=== PATIENT | male | born 1945 | race Caucasian/White ===

== ENCOUNTER → 2016-09-29 | Outpatient (CLI) | payer MEDICARE, OTHER ==
[~2016-09-29] MED LIST: ASPI-231 PO; DULO1CAP3 PO; HYDR-4069 PO; IBUP800T24 PO; MIRT15TA3 PO; MIRT1TAB PO; PHEN100C70 PO; ROSU10TA16 PO
[2016-09-29 08:45] LABS: Basophils # (auto) 0 uL; Basophils % (auto) 0.2 % (0.0-2.0); CONDITION Y; Eosinophils # (auto) 0.1 uL; Eosinophils % (auto) 0.5 % (0.0-7.0); Hematocrit 38.8 % (41.0-53.0); Hemoglobin 13.2 g/dL (13.5-17.5); Lymphocytes # (auto) 2.3 uL; Lymphocytes % (auto) 14.9 % (10.0-50.0); Mean Corpuscular Hemoglobin 33.6 pg (28.0-32.0); Mean Corpuscular Hgb Conc. 34.2 g/dL (32.0-36.0); Mean Corpuscular Volume 98.2 fL (80.0-100.0); Mean Platelet Volume 8.8 fL (7.4-10.4); Monocytes % (auto) 6.5 % (0.0-12.0); Neutrophils # (auto) 12.2 uL; Neutrophils % (auto) 77.9 % (37.0-80.0); Platelet Count (auto) 386 10^3/uL (140-450); Red Cell Distribution Width 13.3 % (11.6-16.0); White Blood Cell 15.6 10^3/uL (4.4-10.8)
[2016-09-29 08:53] LABS: Urine Bilirubin Negative (Negative); Urine Blood Negative /uL (Negative); Urine Color Yellow (Yellow); Urine Glucose Normal (Normal); Urine Ketone Negative (Negative); Urine Nitrite Negative (Negative); Urine RBC 2 /hpf (0 - 3); Urine Urobilinogen Normal (Negative)
[2016-09-29 09:12] LABS: Albumin 2.9 g/dL (3.4-5.0); BUN/Creatinine Ratio 12.5; Bilirubin, Total 0.4 mg/dL (0.2-1.0); Calcium 8.6 mg/dL (8.5-10.1); Total Protein 6.3 g/dL (6.4-8.2)
[2016-09-29 09:19] LABS: Potassium 2.4 mmol/L (3.5-5.1)
== END | disposition home or self-care (01) ==
LOC: LAB 07:48
PROVIDERS: ATTEND Internal Medicine
DX: Z00.00 Encounter for general adult medical examination without abnormal findings (principal); I10 Essential (primary) hypertension; E78.2 Mixed hyperlipidemia; E55.9 Vitamin D deficiency, unspecified
CPT/HCPCS: 36415; 80053; 80061; 81001; 82150; 82306; 84153; 84154; 84443; 85025

== ENCOUNTER 2016-10-04 10:45 | Inpatient (IN) | payer MEDICARE, OTHER ==
[~2016-10-04] VITALS: Ht 182.9 cm; Wt 55.2 kg
[2016-10-04 11:49] LABS: INR 0.98 (0.9-1.15); Partial Thromboplastin Time 32.5 sec (22.64-33.71); Prothrombin Time 10.7 sec (9.37-12.3)
[2016-10-04 11:50] LABS: Basophils # (auto) 0.1 uL; Basophils % (auto) 0.5 % (0.0-2.0); CONDITION Y; Eosinophils # (auto) 0.2 uL; Eosinophils % (auto) 0.9 % (0.0-7.0); Hematocrit 36.7 % (41.0-53.0); Hemoglobin 12.5 g/dL (13.5-17.5); Lymphocytes # (auto) 2.2 uL; Lymphocytes % (auto) 11.7 % (10.0-50.0); Mean Corpuscular Hemoglobin 33.3 pg (28.0-32.0); Mean Corpuscular Volume 97.8 fL (80.0-100.0); Mean Platelet Volume 9.4 fL (7.4-10.4); Monocytes # (auto) 1.4 uL; Monocytes % (auto) 7.6 % (0.0-12.0); Neutrophils # (auto) 14.5 uL; Neutrophils % (auto) 79.3 % (37.0-80.0); Platelet Count (auto) 367 10^3/uL (140-450); White Blood Cell 18.3 10^3/uL (4.4-10.8)
[2016-10-04 11:58] LABS: Albumin 2.5 g/dL (3.4-5.0); BUN/Creatinine Ratio 13.1; Bilirubin, Total 0.5 mg/dL (0.2-1.0); Calcium 8.4 mg/dL (8.5-10.1)
[2016-10-04 12:01] LABS: Potassium 2.3 mmol/L (3.5-5.1)
[2016-10-04] MEDS ORDERED: POTASSIUM CHL 20 Meq TABLET PO ONE ×4 (14:30→15:30)
[2016-10-04] MEDS ORDERED: KETOROLAC TROMETH 30 MG/ML 1ML VIAL IV ONE (15:00)
[2016-10-04] MEDS ORDERED: ONDANSETRON HCL 4 MG/2 ML VIAL IV PRN (15:15)
[2016-10-04] MEDS ORDERED: cefTRIAXone 1GM/50ML D5W 50 ML IV ONE (15:15)
[2016-10-04] MEDS ORDERED: ACETAMINOPHEN 500 MG TAB PO PRN (15:15)
[2016-10-04] MEDS ORDERED: SOD CHL 0.9%/ KCL 40MEQ 1,000 ML IV SCH (15:15)
[2016-10-04] MEDS ORDERED: MORPHINE SULF INJ 2 MG/ML SYRINGE 1ML IV PRN ×2 (15:15)
[2016-10-04] MEDS ORDERED: NITROGLYCERIN 0.4 MG SL TAB SL PRN (15:15)
[2016-10-04] MEDS ORDERED: TEMAZEPAM 15 MG CAP PO PRN (15:15)
[2016-10-04] MEDS ORDERED: LORazepam 0.5 MG TAB PO PRN (15:15)
[2016-10-04] MEDS ORDERED: metroNIDAZOLE 500MG/100ML 100 ML IV ONE (15:15)
[2016-10-04] MEDS ORDERED: HYDROcodone-ACET 5/325MG TAB PO PRN (15:15)
[2016-10-04] MEDS: SODIUM CHLORIDE 0.9% 1,000 ML IV SCH (15:30)
[2016-10-04] MEDS: POTASSIUM CHL 20MEQ/100ML 100 ML IV SCH ×5 (15:30→21:09)
[2016-10-04] MEDS ORDERED: chlordiazePOXIDE HCL 25 MG CAP PO PRN (20:00)
[2016-10-04] MEDS ORDERED: THIAMINE HCL 100 MG/ML 2ML VIAL IV ONE (20:00)
[2016-10-04] MEDS ORDERED: metroNIDAZOLE 500MG/100ML 100 ML IV SCH (22:00)
[2016-10-04] MEDS: PHENYTOIN SODIUM 100 MG CAP PO SCH (22:16)
[2016-10-04] MEDS: ATORVASTATIN 20 MG TAB PO SCH (22:16)
[2016-10-04] MEDS: metroNIDAZOLE 500 MG TAB PO SCH (22:16)
[2016-10-04] MEDS: MIRTAZAPINE 30 MG TAB PO SCH (22:16)
[2016-10-04 22:45] VITALS: BP 147/92
[2016-10-05] MEDS: SODIUM CHLORIDE 0.9% 1,000 ML IV SCH (04:28)
[2016-10-05] MEDS: metroNIDAZOLE 500 MG TAB PO SCH ×4 (05:35→21:30)
[2016-10-05 05:49] VITALS: BP 133/73
[2016-10-05 06:28] LABS: Basophils # (auto) 0 uL; Basophils % (auto) 0.2 % (0.0-2.0); CONDITION Y; Eosinophils # (auto) 0.2 uL; Hematocrit 34.4 % (41.0-53.0); Hemoglobin 11.9 g/dL (13.5-17.5); Lymphocytes # (auto) 1.8 uL; Lymphocytes % (auto) 11.1 % (10.0-50.0); Mean Corpuscular Hemoglobin 33.7 pg (28.0-32.0); Mean Corpuscular Hgb Conc. 34.6 g/dL (32.0-36.0); Mean Corpuscular Volume 97.3 fL (80.0-100.0); Mean Platelet Volume 9.7 fL (7.4-10.4); Monocytes # (auto) 1.2 uL; Monocytes % (auto) 7.5 % (0.0-12.0); Neutrophils # (auto) 13.2 uL; Neutrophils % (auto) 80.2 % (37.0-80.0); Platelet Count (auto) 360 10^3/uL (140-450); Red Cell Distribution Width 13.1 % (11.6-16.0); White Blood Cell 16.5 10^3/uL (4.4-10.8)
[2016-10-05 06:38] LABS: Potassium 3.1 mmol/L (3.5-5.1)
[2016-10-05 06:43] LABS: Calcium 7.6 mg/dL (8.5-10.1)
[2016-10-05 08:02] VITALS: BP 133/73
[2016-10-05 08:07] LABS: PSA Free 0.92 ng/mL; Prostate Specific Antigen 5.4 ng/mL (0.0-4.0)
[2016-10-05 09:00] VITALS: BP 130/71
[2016-10-05] MEDS: PHENYTOIN SODIUM 100 MG CAP PO SCH ×2 (09:06→21:30)
[2016-10-05] MEDS: THIAMINE HCL 100 MG/ML 2ML VIAL IV SCH (09:08)
[2016-10-05] MEDS: ASPirin-EC 81 mg tab PO SCH (09:08)
[2016-10-05] MEDS ORDERED: FOLIC ACID 1 MG TAB PO ONE (10:30)
[2016-10-05] MEDS ORDERED: MULTIPLE VITAMINS W/ MINERALS TAB PO ONE (10:30)
[2016-10-05] MEDS ORDERED: POTASSIUM CHL 10% (20 MEQ/15ML) ORAL SOLN PO ONE (10:30)
[2016-10-05 10:33] LABS: Urine Bilirubin Negative (Negative); Urine Blood Negative /uL (Negative); Urine Color Yellow (Yellow); Urine Glucose Normal (Normal); Urine Ketone TRACE (Negative); Urine Nitrite Negative (Negative); Urine RBC 1 /hpf (0 - 3); Urine Squamous Epithelial Cell FEW /hpf (<5); Urine Urobilinogen Normal (Negative); Urine pH 6.5 (5.0-8.0)
[2016-10-05] MEDS: MAGNESIUM SULFATE 1GM/100ML 100 ML IV SCH ×2 (11:13→13:55)
[2016-10-05 13:00] VITALS: BP 129/77
[2016-10-05] MEDS: SOD CHL 0.45% WITH 20MEQ KCL 1,000 ML IV SCH ×2 (14:17→23:44)
[2016-10-05] MEDS ORDERED: SODIUM CHLORIDE 0.9% 1,000 ML IV SCH (15:30)
[2016-10-05 17:45] VITALS: BP 150/86
[2016-10-05] MEDS: ATORVASTATIN 20 MG TAB PO SCH (21:30)
[2016-10-05] MEDS: MIRTAZAPINE 30 MG TAB PO SCH (21:31)
[2016-10-06 04:48] VITALS: BP 139/75
[2016-10-06] MEDS: metroNIDAZOLE 500 MG TAB PO SCH ×2 (06:04→15:54)
[2016-10-06 06:24] LABS: Basophils # (auto) 0 uL; Basophils % (auto) 0.3 % (0.0-2.0); CONDITION Y; Eosinophils # (auto) 0.5 uL; Eosinophils % (auto) 3.8 % (0.0-7.0); Hematocrit 35.3 % (41.0-53.0); Hemoglobin 11.9 g/dL (13.5-17.5); Lymphocytes # (auto) 2.3 uL; Mean Corpuscular Hemoglobin 33.2 pg (28.0-32.0); Mean Corpuscular Hgb Conc. 33.7 g/dL (32.0-36.0); Mean Corpuscular Volume 98.6 fL (80.0-100.0); Mean Platelet Volume 9.8 fL (7.4-10.4); Monocytes # (auto) 1.2 uL; Monocytes % (auto) 9.1 % (0.0-12.0); Neutrophils # (auto) 8.8 uL; Neutrophils % (auto) 68.8 % (37.0-80.0); Platelet Count (auto) 367 10^3/uL (140-450); Red Cell Distribution Width 12.8 % (11.6-16.0); White Blood Cell 12.8 10^3/uL (4.4-10.8)
[2016-10-06 06:57] LABS: BUN/Creatinine Ratio 11.3; Calcium 7.6 mg/dL (8.5-10.1); Magnesium 1.9 mg/dL (1.6-2.6); Potassium 3.8 mmol/L (3.5-5.1)
[2016-10-06 08:00] VITALS: BP 153/83
[2016-10-06 09:00] VITALS: BP 153/83
[2016-10-06] MEDS ORDERED: MULTIPLE VITAMINS W/ MINERALS TAB PO SCH (10:00)
[2016-10-06] MEDS ORDERED: FLORASTOR (S. BOULARDII) 250 MG CAP PO SCH (10:00)
[2016-10-06] MEDS ORDERED: FOLIC ACID 1 MG TAB PO SCH (10:00)
[2016-10-06] MEDS: SOD CHL 0.45% WITH 20MEQ KCL 1,000 ML IV SCH (10:49)
[2016-10-06] MEDS: PHENYTOIN SODIUM 100 MG CAP PO SCH (10:49)
[2016-10-06] MEDS: THIAMINE HCL 100 MG/ML 2ML VIAL IV SCH (10:49)
[2016-10-06] MEDS: ASPirin-EC 81 mg tab PO SCH (10:50)
[2016-10-06 13:00] VITALS: BP 129/57
[2016-10-06 13:13] VITALS: BP 153/94
== END 2016-10-06 16:29 | disposition home or self-care (01) | DRG 872 ==
LOC: ER 10:50 → TELE 10:51 → TELE-WESTW 22:34 → WEST WING 10-05 20:29
PROVIDERS: ADMIT Nurse Practitioner Family; ATTEND Internal Medicine
DX: A41.9 Sepsis, unspecified organism (principal); A04.7 Enterocolitis due to Clostridium difficile; E44.0 Moderate protein-calorie malnutrition; Z68.1 Body mass index [BMI] 19.9 or less, adult; E87.6 Hypokalemia; J44.9 Chronic obstructive pulmonary disease, unspecified; N20.0 Calculus of kidney; N28.1 Cyst of kidney, acquired; E78.5 Hyperlipidemia, unspecified; N40.0 Benign prostatic hyperplasia without lower urinary tract symptoms; E11.9 Type 2 diabetes mellitus without complications; Z86.73 Personal history of transient ischemic attack (TIA), and cerebral infarction without residual deficits; E83.42 Hypomagnesemia; D64.9 Anemia, unspecified; E86.0 Dehydration; F10.10 Alcohol abuse, uncomplicated; G40.909 Epilepsy, unspecified, not intractable, without status epilepticus; I10 Essential (primary) hypertension; K57.30 Diverticulosis of large intestine without perforation or abscess without bleeding; Z79.899 Other long term (current) drug therapy; Z83.3 Family history of diabetes mellitus; F32.9 Major depressive disorder, single episode, unspecified; M19.90 Unspecified osteoarthritis, unspecified site; Z79.82 Long term (current) use of aspirin
CPT/HCPCS: 36415; 71010; 74176; 80048; 80053; 80185; 81001; 82962; 83605; 83735; 84100; 84132; 84154; 84443; 85025; 85610; 85730; 87040; 87493; 93005; 96365; 96368; 96375; J0696; J1885; J3480; J3490

== ENCOUNTER → 2016-11-04 | Outpatient (CLI) | payer MEDICARE, OTHER ==
[2016-11-04 08:29] LABS: Albumin 2.5 g/dL (3.4-5.0); BUN/Creatinine Ratio 17.1; Bilirubin, Total 0.3 mg/dL (0.2-1.0); Calcium 8.2 mg/dL (8.5-10.1); Total Protein 5.9 g/dL (6.4-8.2)
[2016-11-04 09:06] LABS: Potassium 2.9 mmol/L (3.5-5.1)
[2016-11-05 07:11] LABS: Prostate Specific Antigen 4.5 ng/mL (0.0-4.0)
[2016-11-05 08:07] LABS: PSA Free 0.72 ng/mL
== END | disposition home or self-care (01) ==
LOC: LAB 07:56
PROVIDERS: ATTEND Internal Medicine
DX: I10 Essential (primary) hypertension (principal); R97.20 Elevated prostate specific antigen [PSA]; E11.9 Type 2 diabetes mellitus without complications
CPT/HCPCS: 36415; 80053; 84153; 84154

== ENCOUNTER → 2016-12-07 | Outpatient (CLI) | payer MEDICARE, OTHER | END | disposition home or self-care (01) | LOC: LAB 11:27 | PROVIDERS: ATTEND Internal Medicine | DX: K59.00 Constipation, unspecified (principal); J44.9 Chronic obstructive pulmonary disease, unspecified; Z72.89 Other problems related to lifestyle | CPT/HCPCS: 36415; 84132; 87493 ==

== ENCOUNTER → 2016-12-29 | Outpatient (CLI) | payer MEDICARE, OTHER | END | disposition home or self-care (01) | LOC: LAB 13:02 | PROVIDERS: ATTEND Physician Assistant | DX: A04.72 Enterocolitis due to Clostridium difficile, not specified as recurrent (principal) | CPT/HCPCS: 87493 ==

== ENCOUNTER → 2017-10-31 | Outpatient (CLI) | payer MEDICARE ==
[2017-10-31 08:57] LABS: Basophils # (auto) 0 uL; Basophils % (auto) 0.3 % (0.0-2.0); Eosinophils # (auto) 0.2 uL; Eosinophils % (auto) 3.2 % (0.0-7.0); Hematocrit 37.2 % (41.0-53.0); Hemoglobin 12.4 g/dL (13.5-17.5); Lymphocytes # (auto) 1.9 uL; Lymphocytes % (auto) 27.6 % (10.0-50.0); Mean Corpuscular Hemoglobin 32.6 pg (28.0-32.0); Mean Corpuscular Hgb Conc. 33.2 g/dL (32.0-36.0); Mean Corpuscular Volume 98.1 fL (80.0-100.0); Monocytes # (auto) 0.7 uL; Monocytes % (auto) 10.8 % (0.0-12.0); Neutrophils # (auto) 3.9 uL; Neutrophils % (auto) 58.1 % (37.0-80.0); Nucleated Red Blood Cells % 0.1 %; Platelet Count (auto) 185 10^3/uL (140-450); Red Blood Cells 3.79 10^6/uL (4.5-5.90); Red Cell Distribution Width 12.3 % (11.8-14.3); White Blood Cell 6.8 10^3/uL (4.4-10.8)
[2017-10-31 09:24] LABS: Albumin 3.5 g/dL (3.4-5.0); Bilirubin, Total 0.2 mg/dL (0.2-1.0); Calcium 8.9 mg/dL (8.5-10.1); Potassium 4.7 mmol/L (3.5-5.1); Total Protein 6.5 g/dL (6.4-8.2)
== END | disposition home or self-care (01) ==
LOC: LAB 08:37
PROVIDERS: ATTEND Physician Assistant
DX: J44.9 Chronic obstructive pulmonary disease, unspecified (principal); E87.6 Hypokalemia; E55.9 Vitamin D deficiency, unspecified; E78.4 Other hyperlipidemia; R97.20 Elevated prostate specific antigen [PSA]; I10 Essential (primary) hypertension; E11.9 Type 2 diabetes mellitus without complications; Z79.82 Long term (current) use of aspirin
CPT/HCPCS: 36415; 80053; 80061; 82306; 84153; 84154; 85025

== ENCOUNTER → 2018-12-12 | Outpatient (CLI) | payer OTHER ==
[~2018-12-12] MED LIST changes: -DULO1CAP3 PO; +DULO1CAP6 PO; -MIRT15TA3 PO; +MIRT1TAB38 PO
[2018-12-12 11:28] LABS: Albumin 3.7 g/dL (3.4-5.0); BUN/Creatinine Ratio 23.3; Bilirubin, Total 0.4 mg/dL (0.2-1.0); Calcium 9.5 mg/dL (8.5-10.1); Total Protein 7.1 g/dL (6.4-8.2)
[2018-12-13 01:12] LABS: Basophils # (auto) 0.1 uL; Basophils % (auto) 1.8 % (0.0-2.0); Eosinophils # (auto) 0.2 uL; Eosinophils % (auto) 2.7 % (0.0-7.0); Hemoglobin 13.8 g/dL (13.5-17.5); Lymphocytes # (auto) 2.2 uL; Lymphocytes % (auto) 32.1 % (10.0-50.0); Mean Corpuscular Hemoglobin 31.7 pg (28.0-32.0); Mean Corpuscular Hgb Conc. 32.9 g/dL (32.0-36.0); Mean Corpuscular Volume 96.3 fL (80.0-100.0); Monocytes # (auto) 0.8 uL; Monocytes % (auto) 11.2 % (0.0-12.0); Neutrophils # (auto) 3.6 uL; Neutrophils % (auto) 52.2 % (37.0-80.0); Nucleated Red Blood Cells % 0.1 %; Platelet Count (auto) 207 10^3/uL (140-450); Red Blood Cells 4.37 10^6/uL (4.5-5.90); Red Cell Distribution Width 14.2 % (11.8-14.3); White Blood Cell 6.9 10^3/uL (4.4-10.8)
== END | disposition home or self-care (01) ==
LOC: LAB 10:15
PROVIDERS: ATTEND Physician Assistant
DX: J44.9 Chronic obstructive pulmonary disease, unspecified (principal); E78.49 Other hyperlipidemia; E55.9 Vitamin D deficiency, unspecified; K85.20 Alcohol induced acute pancreatitis without necrosis or infection; R97.20 Elevated prostate specific antigen [PSA]
CPT/HCPCS: 36415; 80053; 80061; 82306; 84153; 84154; 85025

== ENCOUNTER → 2019-10-15 | Outpatient (CLI) | payer MEDICARE, OTHER ==
[~2019-10-15] MED LIST changes: +ALBUTEROL SULF 2.5 MG/0.5ML(0.5%) NEB SOLN ONE
== END | disposition home or self-care (01) ==
LOC: RT 08:26
PROVIDERS: ATTEND Internal Medicine Pulmonary Disease
DX: J98.8 Other specified respiratory disorders (principal); J44.9 Chronic obstructive pulmonary disease, unspecified; F32.9 Major depressive disorder, single episode, unspecified; Z98.890 Other specified postprocedural states; Z79.899 Other long term (current) drug therapy
CPT/HCPCS: 36600; 82805; 94060; 94618

== ENCOUNTER → 2020-01-16 | Outpatient (CLI) | payer OTHER ==
[~2020-01-16] MED LIST changes: -ALBUTEROL SULF 2.5 MG/0.5ML(0.5%) NEB SOLN ONE
[2020-01-16 07:40] LABS: Basophils # (auto) 0 10 ^3/uL (0-0.2); Basophils % (auto) 0.5 % (0.0-2.0); Eosinophils # (auto) 0.3 10 ^3/uL (0-0.8); Hematocrit 40.2 % (41.0-53.0); Hemoglobin 13.4 g/dL (13.5-17.5); Lymphocytes # (auto) 1.9 10 ^3/uL (0.4-5.4); Mean Corpuscular Hemoglobin 30.7 pg (28.0-32.0); Mean Corpuscular Hgb Conc. 33.2 g/dL (32.0-36.0); Mean Corpuscular Volume 92.4 fL (80.0-100.0); Monocytes # (auto) 0.7 10 ^3/uL (0-1.3); Monocytes % (auto) 8.4 % (0.0-12.0); Neutrophils % (auto) 63.1 % (37.0-80.0); Nucleated Red Blood Cells % 0.1 %; Platelet Count (auto) 217 10^3/uL (140-450); Red Blood Cells 4.35 10^6/uL (4.5-5.90); Red Cell Distribution Width 12.9 % (11.8-14.3); White Blood Cell 7.8 10^3/uL (4.4-10.8)
[2020-01-16 08:50] LABS: Albumin 3.8 g/dL (3.4-5.0); Potassium 4.5 mmol/L (3.5-5.1)
[2020-01-16 08:57] LABS: BUN/Creatinine Ratio 25.7; Bilirubin, Total 0.3 mg/dL (0.2-1.0); Calcium 9.6 mg/dL (8.5-10.1); Total Protein 7.1 g/dL (6.4-8.2)
== END | disposition home or self-care (01) ==
LOC: LAB 07:18
PROVIDERS: ATTEND Physician Assistant
DX: E87.6 Hypokalemia (principal); E78.49 Other hyperlipidemia; E55.9 Vitamin D deficiency, unspecified; F32.4 Major depressive disorder, single episode, in partial remission; R97.20 Elevated prostate specific antigen [PSA]
CPT/HCPCS: 36415; 80053; 80061; 82306; 84153; 84154; 85025

== ENCOUNTER → 2020-10-22 | Outpatient (CLI) | payer OTHER ==
[~2020-10-22] MED LIST changes: -IBUP800T24 PO; +IBUP800T26 PO; +PHEN100C PO; -PHEN100C70 PO
[2020-10-22 10:50] LABS: Basophils # (auto) 0 10 ^3/uL (0-0.2); Basophils % (auto) 0.4 % (0.0-2.0); Eosinophils # (auto) 0.3 10 ^3/uL (0-0.8); Eosinophils % (auto) 2.6 % (0.0-7.0); Hematocrit 39.5 % (41.0-53.0); Hemoglobin 13.7 g/dL (13.5-17.5); Lymphocytes # (auto) 2.4 10 ^3/uL (0.4-5.4); Lymphocytes % (auto) 23.9 % (10.0-50.0); Mean Corpuscular Hemoglobin 31.7 pg (28.0-32.0); Mean Corpuscular Hgb Conc. 34.6 g/dL (32.0-36.0); Mean Corpuscular Volume 91.5 fL (80.0-100.0); Monocytes # (auto) 0.8 10 ^3/uL (0-1.3); Monocytes % (auto) 7.7 % (0.0-12.0); Neutrophils # (auto) 6.5 10 ^3/uL (1.6-8.6); Neutrophils % (auto) 65.4 % (37.0-80.0); Red Blood Cells 4.32 10^6/uL (4.5-5.90); Red Cell Distribution Width 13.1 % (11.8-14.3)
[2020-10-22 11:14] LABS: Potassium 4.7 mmol/L (3.5-5.1)
[2020-10-22 11:18] LABS: Bilirubin, Total 0.4 mg/dL (0.2-1.0)
== END | disposition home or self-care (01) ==
LOC: LAB 10:13
PROVIDERS: ATTEND Nurse Practitioner Family
DX: J44.9 Chronic obstructive pulmonary disease, unspecified (principal); R92.2 Inconclusive mammogram; E87.6 Hypokalemia; Z86.73 Personal history of transient ischemic attack (TIA), and cerebral infarction without residual deficits
CPT/HCPCS: 36415; 80053; 80061; 85025

== ENCOUNTER 2020-11-23 15:37 | Inpatient (IN) | payer OTHER ==
[~2020-11-23] VITALS: Ht 182.9 cm; Wt 60.9 kg
[~2020-11-23 15:37] MED LIST changes: -ASPI-231 PO; +ASPI1TAB20 PO
[2020-11-23 16:22] LABS: Basophils # (auto) 0 10 ^3/uL (0-0.2); Basophils % (auto) 0.2 % (0.0-2.0); Eosinophils # (auto) 0 10 ^3/uL (0-0.8); Eosinophils % (auto) 0.1 % (0.0-7.0); Hematocrit 35.9 % (41.0-53.0); Hemoglobin 11.9 g/dL (13.5-17.5); Lymphocytes # (auto) 1.8 10 ^3/uL (0.4-5.4); Lymphocytes % (auto) 10.3 % (10.0-50.0); Mean Corpuscular Hgb Conc. 33.1 g/dL (32.0-36.0); Mean Corpuscular Volume 90.7 fL (80.0-100.0); Monocytes # (auto) 1.5 10 ^3/uL (0-1.3); Monocytes % (auto) 8.8 % (0.0-12.0); Neutrophils # (auto) 13.9 10 ^3/uL (1.6-8.6); Neutrophils % (auto) 80.6 % (37.0-80.0); Red Blood Cells 3.96 10^6/uL (4.5-5.90); Red Cell Distribution Width 12.9 % (11.8-14.3); White Blood Cell 17.2 10^3/uL (4.4-10.8)
[2020-11-23 16:36] LABS: Albumin 3.1 g/dL (3.4-5.0); Anion Gap 8 (5-15); Blood Urea Nitrogen 23 mg/dL (7-18); Carbon Dioxide 25 mmol/L (21-32); Chloride 108 mmol/L (98-107); Glucose 123 mg/dL (74-106); Lipase 55 U/L (73-393); Sodium 141 mmol/L (136-145)
[2020-11-23 16:42] LABS: Alanine Aminotransferase 39 U/L (16-61); Alkaline Phosphatase 115 U/L (45-117); Aspartate Aminotransferase 22 U/L (15-37); BUN/Creatinine Ratio 27.1; Bilirubin, Total 0.5 mg/dL (0.2-1.0); GFR African American 113 mL/min; GFR Non-African American 94 mL/min; Total Protein 7.2 g/dL (6.4-8.2)
[2020-11-23 17:03] LABS: Potassium 2.6 mmol/L (3.5-5.1)
[2020-11-23] MEDS ORDERED: POTASSIUM EFFERVESENT TAB 25 MEQ PO ONE ×2 (17:15)
[2020-11-23] MEDS ORDERED: cefTRIAXone 1GM/50ML D5W 50 ML IV ONE (18:15)
[2020-11-23] MEDS ORDERED: metroNIDAZOLE 500MG/100ML 100 ML IV ONE (18:15)
[2020-11-23] MEDS ORDERED: MAGNESIUM SULFATE 1GM/100ML 100 ML IV ONE (19:30)
[2020-11-23] MEDS ORDERED: NITROGLYCERIN 0.4 MG SL TAB SL PRN (19:30)
[2020-11-23] MEDS ORDERED: MORPHINE SULFATE INJECTION 2 MG/ML SYRG IV PRN (19:30)
[2020-11-23] MEDS ORDERED: DEXTROSE (50%) 50ML SYRG IV PRN (19:45)
[2020-11-23] MEDS: SOD CHL 0.9%/ KCL 40MEQ 1,000 ML IV SCH (21:40)
[2020-11-23] MEDS: VANCOMYCIN HCL 125MG/5ML ORAL SOL PO SCH (22:39)
[2020-11-23] MEDS: InsuLIN REG 1unit/0.01ml Soln (100units/ml) SC SCH (22:48)
[2020-11-23] MEDS: metroNIDAZOLE 500MG/100ML 100 ML IV SCH (22:50)
[2020-11-23] MEDS: ACCU-CHEK COMFORT CURVE STRIP VI SCH (22:51)
[2020-11-24 04:43] LABS: Basophils # (auto) 0 10 ^3/uL (0-0.2); Basophils % (auto) 0.2 % (0.0-2.0); Eosinophils # (auto) 0.1 10 ^3/uL (0-0.8); Eosinophils % (auto) 0.5 % (0.0-7.0); Hematocrit 32.9 % (41.0-53.0); Hemoglobin 11.4 g/dL (13.5-17.5); Lymphocytes # (auto) 1.5 10 ^3/uL (0.4-5.4); Lymphocytes % (auto) 11.5 % (10.0-50.0); Mean Corpuscular Hemoglobin 30.9 pg (28.0-32.0); Mean Corpuscular Hgb Conc. 34.5 g/dL (32.0-36.0); Mean Corpuscular Volume 89.5 fL (80.0-100.0); Monocytes # (auto) 1.2 10 ^3/uL (0-1.3); Monocytes % (auto) 9.7 % (0.0-12.0); Neutrophils # (auto) 10.1 10 ^3/uL (1.6-8.6); Neutrophils % (auto) 78.1 % (37.0-80.0); Red Blood Cells 3.68 10^6/uL (4.5-5.90); Red Cell Distribution Width 12.8 % (11.8-14.3); White Blood Cell 12.9 10^3/uL (4.4-10.8)
[2020-11-24 04:45] LABS: Urine Bacteria FEW /hpf (None Seen); Urine Blood Negative /uL (Negative); Urine Hyaline Cast FEW /lpf (0 - 2); Urine Mucus FEW (None Seen); Urine Specific Gravity 1.031 (1.001-1.035); Urine WBC 2 /hpf (0 - 3)
[2020-11-24 05:00] LABS: Amphetamine Screen, Urine NEGATIVE (NEGATIVE); Cannabinoid Screen, Urine NEGATIVE (NEGATIVE); Cocaine Screen, Urine NEGATIVE (NEGATIVE)
[2020-11-24 05:03] LABS: Barbiturate Scree,Urine NEGATIVE (NEGATIVE); Benzodiazephine Screen, Urine NEGATIVE (NEGATIVE); Opiate Scree,Urine NEGATIVE (NEGATIVE); Phencyclidine Screen, Urine NEGATIVE (NEGATIVE)
[2020-11-24 05:03] LABS: Calcium 8.4 mg/dL (8.5-10.1)
[2020-11-24 05:09] LABS: Albumin 2.7 g/dL (3.4-5.0); Bilirubin, Total 0.4 mg/dL (0.2-1.0); Magnesium 2.3 mg/dL (1.6-2.6); Total Protein 6.3 g/dL (6.4-8.2)
[2020-11-24 05:22] LABS: Potassium 2.9 mmol/L (3.5-5.1)
[2020-11-24] MEDS ORDERED: POTASSIUM CHL 20 Meq TABLET PO ONE (05:45)
[2020-11-24] MEDS: ACCU-CHEK COMFORT CURVE STRIP VI SCH ×2 (05:51→11:10)
[2020-11-24] MEDS: VANCOMYCIN HCL 125MG/5ML ORAL SOL PO SCH ×4 (06:03→22:00)
[2020-11-24] MEDS: SOD CHL 0.9%/ KCL 40MEQ 1,000 ML IV SCH ×2 (07:37→15:30)
[2020-11-24] MEDS: InsuLIN REG 1unit/0.01ml Soln (100units/ml) SC SCH ×2 (07:37→11:09)
[2020-11-24] MEDS: metroNIDAZOLE 500MG/100ML 100 ML IV SCH ×3 (07:37→22:49)
[2020-11-24] MEDS: ATORVASTATIN 20 MG TAB PO SCH (09:27)
[2020-11-24] MEDS: cefTRIAXone 1GM/50ML D5W 50 ML IV SCH (09:28)
[2020-11-24] MEDS: PANTOPRAZOLE 40 MG TAB PO SCH (09:28)
[2020-11-24] MEDS ORDERED: POTASSIUM CHLORIDE 40 MEQ, LIDOCAINE 1% (LOCAL ANESTH.) 4 ML in SODIUM CHL 0.9% 250 ML IV ONE (12:00)
[2020-11-24] MEDS ORDERED: PHENYTOIN SODIUM 100 MG CAP PO SCH (22:00)
[2020-11-24] MEDS: PHENYTOIN SODIUM 50 MG/ML 2ML VIAL IV SCH (22:49)
[2020-11-25] MEDS: SOD CHL 0.9%/ KCL 40MEQ 1,000 ML IV SCH (02:51)
[2020-11-25 04:53] VITALS: BP 146/79
[2020-11-25 04:55] LABS: Basophils # (auto) 0 10 ^3/uL (0-0.2); Basophils % (auto) 0.5 % (0.0-2.0); Eosinophils # (auto) 0.2 10 ^3/uL (0-0.8); Eosinophils % (auto) 2.7 % (0.0-7.0); Hematocrit 31.8 % (41.0-53.0); Hemoglobin 10.7 g/dL (13.5-17.5); Lymphocytes # (auto) 1.2 10 ^3/uL (0.4-5.4); Lymphocytes % (auto) 13.3 % (10.0-50.0); Mean Corpuscular Hgb Conc. 33.6 g/dL (32.0-36.0); Mean Corpuscular Volume 92.1 fL (80.0-100.0); Monocytes # (auto) 0.9 10 ^3/uL (0-1.3); Monocytes % (auto) 9.7 % (0.0-12.0); Neutrophils # (auto) 6.6 10 ^3/uL (1.6-8.6); Neutrophils % (auto) 73.8 % (37.0-80.0); Nucleated Red Blood Cells % 0.1 %; Red Blood Cells 3.45 10^6/uL (4.5-5.90); Red Cell Distribution Width 12.8 % (11.8-14.3)
[2020-11-25 05:12] LABS: BUN/Creatinine Ratio 24.1; Calcium 8.1 mg/dL (8.5-10.1); Potassium 3.8 mmol/L (3.5-5.1)
[2020-11-25] MEDS: VANCOMYCIN HCL 125MG/5ML ORAL SOL PO SCH ×4 (06:23→21:26)
[2020-11-25] MEDS: metroNIDAZOLE 500MG/100ML 100 ML IV SCH ×3 (06:23→21:26)
[2020-11-25 08:00] VITALS: BP 151/77
[2020-11-25 09:00] VITALS: BP 151/77
[2020-11-25] MEDS: cefTRIAXone 1GM/50ML D5W 50 ML IV SCH (10:16)
[2020-11-25] MEDS: DULoxetine HCL 30 MG CAP PO SCH (10:17)
[2020-11-25] MEDS: ATORVASTATIN 20 MG TAB PO SCH (10:17)
[2020-11-25] MEDS: PHENYTOIN SODIUM 50 MG/ML 2ML VIAL IV SCH ×2 (10:17→21:21)
[2020-11-25] MEDS: PANTOPRAZOLE 40 MG TAB PO SCH (10:17)
[2020-11-25] MEDS ORDERED: LORazepam 0.5 MG TAB PO PRN (10:45)
[2020-11-25] MEDS ORDERED: FOLIC ACID 1 MG TAB PO ONE (10:45)
[2020-11-25] MEDS ORDERED: THIAMINE HCL 100 MG TAB PO ONE (10:45)
[2020-11-25 13:00] VITALS: BP 139/83
[2020-11-25 17:00] VITALS: BP 128/68
[2020-11-25] MEDS: MIRTAZAPINE 30 MG TAB PO SCH (21:25)
[2020-11-25 22:00] VITALS: BP 142/76
[2020-11-26 05:00] VITALS: BP 125/65
[2020-11-26] MEDS: metroNIDAZOLE 500MG/100ML 100 ML IV SCH ×3 (05:03→21:01)
[2020-11-26] MEDS: VANCOMYCIN HCL 125MG/5ML ORAL SOL PO SCH ×5 (05:03→21:13)
[2020-11-26 08:30] VITALS: BP 127/69
[2020-11-26] MEDS: FOLIC ACID 1 MG TAB PO SCH (09:37)
[2020-11-26] MEDS: PHENYTOIN SODIUM 50 MG/ML 2ML VIAL IV SCH (09:37)
[2020-11-26] MEDS: THIAMINE HCL 100 MG TAB PO SCH (09:37)
[2020-11-26] MEDS: cefTRIAXone 1GM/50ML D5W 50 ML IV SCH (09:37)
[2020-11-26] MEDS: ATORVASTATIN 20 MG TAB PO SCH (09:38)
[2020-11-26] MEDS: PANTOPRAZOLE 40 MG TAB PO SCH (09:38)
[2020-11-26] MEDS: DULoxetine HCL 30 MG CAP PO SCH (09:38)
[2020-11-26 12:30] VITALS: BP 146/81
[2020-11-26] MEDS ORDERED: METR500T14 PO (13:20)
[2020-11-26] MEDS ORDERED: LEVO-28 PO (13:20)
[2020-11-26 16:29] VITALS: BP 159/82
[2020-11-26] MEDS: PHENYTOIN SODIUM 100 MG CAP PO SCH (21:01)
[2020-11-26] MEDS: MIRTAZAPINE 30 MG TAB PO SCH (21:04)
[2020-11-26 22:00] VITALS: BP 151/78
[2020-11-27 05:00] VITALS: BP 136/82
[2020-11-27] MEDS: metroNIDAZOLE 500MG/100ML 100 ML IV SCH ×2 (05:37→14:11)
[2020-11-27] MEDS: VANCOMYCIN HCL 125MG/5ML ORAL SOL PO SCH (06:00)
[2020-11-27 08:00] VITALS: BP 145/80
[2020-11-27 08:30] VITALS: BP 145/80
[2020-11-27] MEDS: cefTRIAXone 1GM/50ML D5W 50 ML IV SCH (08:50)
[2020-11-27] MEDS: PHENYTOIN SODIUM 100 MG CAP PO SCH (10:27)
[2020-11-27] MEDS: THIAMINE HCL 100 MG TAB PO SCH (10:28)
[2020-11-27] MEDS: DULoxetine HCL 30 MG CAP PO SCH (10:28)
[2020-11-27] MEDS: ATORVASTATIN 20 MG TAB PO SCH (10:29)
[2020-11-27] MEDS: PANTOPRAZOLE 40 MG TAB PO SCH (10:29)
[2020-11-27] MEDS: FOLIC ACID 1 MG TAB PO SCH (10:29)
[2020-11-27 11:01] VITALS: BP 149/87
[2020-11-27 13:30] VITALS: BP 145/77
== END 2020-11-27 15:30 | disposition home or self-care (01) | DRG 392 ==
LOC: ER 15:37 → TELE 19:29 → TELE-CENTR 11-24 21:51 → CENTRAL 11-26 13:19
PROVIDERS: ADMIT Nurse Practitioner Acute Care; ATTEND Internal Medicine
DX: K57.32 Diverticulitis of large intestine without perforation or abscess without bleeding (principal); E87.6 Hypokalemia; E11.9 Type 2 diabetes mellitus without complications; G40.909 Epilepsy, unspecified, not intractable, without status epilepticus; E78.5 Hyperlipidemia, unspecified; I10 Essential (primary) hypertension; J44.9 Chronic obstructive pulmonary disease, unspecified; N40.0 Benign prostatic hyperplasia without lower urinary tract symptoms; E88.09 Other disorders of plasma-protein metabolism, not elsewhere classified; Z20.822 Contact with and (suspected) exposure to COVID-19; F32.A Depression, unspecified; F10.10 Alcohol abuse, uncomplicated; Z79.899 Other long term (current) drug therapy; Z86.19 Personal history of other infectious and parasitic diseases; Z87.891 Personal history of nicotine dependence
CPT/HCPCS: 36415; 74176; 80048; 80053; 80185; 80307; 81001; 82378; 82962; 83036; 83605; 83690; 83735; 84484; 85025; 87040; 87045; 87426; 87427; 87493; 96365; 96367; G0378; J0696; J1815; J2001; J3490

== ENCOUNTER → 2020-12-11 | Outpatient (CLI) | payer OTHER, MEDICARE ==
[~2020-12-11] MED LIST changes: +LEVO-28 PO; +METR500T14 PO
[2020-12-11 11:52] LABS: Calcium 8.9 mg/dL (8.5-10.1); Potassium 3.3 mmol/L (3.5-5.1)
== END | disposition home or self-care (01) ==
LOC: LAB 11:11
PROVIDERS: ATTEND Nurse Practitioner Family
DX: E87.6 Hypokalemia (principal)
CPT/HCPCS: 36415; 80048

== ENCOUNTER 2020-12-22 19:08 | Emergency (ER) | payer MEDICARE, OTHER ==
[~2020-12-22] VITALS: Ht 182.9 cm; Wt 63.5 kg
[2020-12-22] MEDS ORDERED: LORazepam 2MG/ML-1ML VIAL IV ONE (20:15)
[2020-12-22 20:39] LABS: Basophils # (auto) 0.1 10 ^3/uL (0-0.2); Basophils % (auto) 0.5 % (0.0-2.0); Eosinophils # (auto) 0.1 10 ^3/uL (0-0.8); Hematocrit 39.1 % (41.0-53.0); Hemoglobin 13.3 g/dL (13.5-17.5); Mean Corpuscular Hgb Conc. 34.1 g/dL (32.0-36.0); Mean Corpuscular Volume 90.8 fL (80.0-100.0); Monocytes % (auto) 6.7 % (0.0-12.0); Neutrophils # (auto) 12.1 10 ^3/uL (1.6-8.6); Neutrophils % (auto) 84.8 % (37.0-80.0); Red Cell Distribution Width 13.5 % (11.8-14.3); White Blood Cell 14.3 10^3/uL (4.4-10.8)
[2020-12-22 21:06] LABS: Albumin 3.4 g/dL (3.4-5.0); Anion Gap 5 (5-15); Blood Urea Nitrogen 16 mg/dL (7-18); Calcium 8.8 mg/dL (8.5-10.1); Carbon Dioxide 28 mmol/L (21-32); Chloride 109 mmol/L (98-107); Glucose 111 mg/dL (74-106); Potassium 3.7 mmol/L (3.5-5.1); Sodium 142 mmol/L (136-145)
[2020-12-22 21:09] LABS: Alanine Aminotransferase 16 U/L (16-61); Aspartate Aminotransferase 17 U/L (15-37); BUN/Creatinine Ratio 19.5; Blood Alcohol < 3.0 mg/dL (0-5); GFR African American 118 mL/min; GFR Non-African American 98 mL/min
[2020-12-22 21:12] LABS: Alkaline Phosphatase 99 U/L (45-117); Bilirubin, Total 0.3 mg/dL (0.2-1.0); Total Protein 7.2 g/dL (6.4-8.2)
[2020-12-22] MEDS ORDERED: PHENYTOIN IV DILANTIN 500 MG in SODIUM CHL 0.9% 100 ML IV ONE (22:30)
[2020-12-22] MEDS ORDERED: PHENYTOIN SODIUM 50 MG/ML 5ML INJ VIAL IV ONE (22:55)
[2020-12-23 01:55] VITALS: BP 135/84
== END 2020-12-23 01:55 | disposition home or self-care (01) ==
LOC: EDBD 19:08 → ER 19:12
DX: G40.909 Epilepsy, unspecified, not intractable, without status epilepticus (principal); E11.9 Type 2 diabetes mellitus without complications; E78.5 Hyperlipidemia, unspecified; I10 Essential (primary) hypertension; Z86.73 Personal history of transient ischemic attack (TIA), and cerebral infarction without residual deficits
CPT/HCPCS: 36415; 80053; 80185; 80320; 83735; 85025; 93005; 96365; 96375; 99285; J1165; J2060

== ENCOUNTER → 2021-12-20 | Outpatient (CLI) | payer OTHER ==
[2021-12-20 10:35] LABS: Basophils # (auto) 0.1 10 ^3/uL (0-0.2); Basophils % (auto) 0.5 % (0.0-2.0); Eosinophils # (auto) 0.2 10 ^3/uL (0-0.8); Eosinophils % (auto) 2.3 % (0.0-7.0); Hematocrit 39.8 % (41.0-53.0); Hemoglobin 13.3 g/dL (13.5-17.5); Lymphocytes # (auto) 1.8 10 ^3/uL (0.4-5.4); Lymphocytes % (auto) 16.3 % (10.0-50.0); Mean Corpuscular Hemoglobin 29.8 pg (28.0-32.0); Mean Corpuscular Hgb Conc. 33.4 g/dL (32.0-36.0); Mean Corpuscular Volume 89.3 fL (80.0-100.0); Monocytes # (auto) 0.8 10 ^3/uL (0-1.3); Monocytes % (auto) 7.3 % (0.0-12.0); Neutrophils % (auto) 73.6 % (37.0-80.0); Red Blood Cells 4.46 10^6/uL (4.5-5.90); White Blood Cell 10.8 10^3/uL (4.4-10.8)
[2021-12-20 10:59] LABS: Albumin 3.4 g/dL (3.4-5.0); Potassium 3.9 mmol/L (3.5-5.1)
[2021-12-20 11:07] LABS: BUN/Creatinine Ratio 25.7; Bilirubin, Total 0.5 mg/dL (0.2-1.0); Calcium 9.4 mg/dL (8.5-10.1); Total Protein 7.3 g/dL (6.4-8.2)
== END | disposition home or self-care (01) ==
LOC: LAB 09:39
PROVIDERS: ATTEND Nurse Practitioner Family
DX: Z00.00 Encounter for general adult medical examination without abnormal findings (principal); J44.9 Chronic obstructive pulmonary disease, unspecified; R97.20 Elevated prostate specific antigen [PSA]; Z79.899 Other long term (current) drug therapy
CPT/HCPCS: 36415; 80053; 80061; 84153; 84154; 85025

== ENCOUNTER 2022-02-05 13:14 | Inpatient (IN) | payer OTHER ==
[~2022-02-05] VITALS: Ht 182.9 cm; Wt 56.4 kg
[2022-02-05] MEDS ORDERED: IPRATROPIUM BROM 0.5 MG/2.5ML INH SOL NEB ONE (14:15)
[2022-02-05] MEDS ORDERED: ONDANSETRON HCL 4 MG/2 ML VIAL IV ONE (14:15)
[2022-02-05] MEDS ORDERED: ALBUTEROL SULF 2.5 MG/0.5ML(0.5%) NEB SOLN NEB ONE (14:15)
[2022-02-05 14:57] LABS: Basophils # (auto) 0 10 ^3/uL (0-0.2); Basophils % (auto) 0.2 % (0.0-2.0); Eosinophils # (auto) 0 10 ^3/uL (0-0.8); Hematocrit 41.4 % (41.0-53.0); Hemoglobin 13.9 g/dL (13.5-17.5); Lymphocytes # (auto) 1.3 10 ^3/uL (0.4-5.4); Lymphocytes % (auto) 6.6 % (10.0-50.0); Mean Corpuscular Hemoglobin 29.6 pg (28.0-32.0); Mean Corpuscular Hgb Conc. 33.6 g/dL (32.0-36.0); Monocytes # (auto) 1.9 10 ^3/uL (0-1.3); Monocytes % (auto) 10.1 % (0.0-12.0); Neutrophils # (auto) 15.8 10 ^3/uL (1.6-8.6); Neutrophils % (auto) 83.1 % (37.0-80.0); Nucleated Red Blood Cells % 0.1 %; Red Cell Distribution Width 12.9 % (11.8-14.3)
[2022-02-05 15:18] LABS: Albumin 3.6 g/dL (3.4-5.0); Calcium 9.6 mg/dL (8.5-10.1); Magnesium 2.4 mg/dL (1.6-2.6)
[2022-02-05 15:22] LABS: BUN/Creatinine Ratio 25.7; Bilirubin, Total 0.7 mg/dL (0.2-1.0); Total Protein 7.8 g/dL (6.4-8.2)
[2022-02-05] MEDS ORDERED: POTASSIUM EFFERVESENT TAB 25 MEQ GT ONE (15:45)
[2022-02-05] MEDS ORDERED: PIPERACILLIN-TAZOB 3.375GM 100 ML IV ONE (16:00)
[2022-02-05 16:13] LABS: Lactic Acid w/Reflex 3.9 mmol/L (0.4-2.0)
[2022-02-05] MEDS ORDERED: NITROGLYCERIN 0.4 MG SL TAB SL PRN (22:15)
[2022-02-05] MEDS ORDERED: DEXTROSE (50%) 50ML SYRG IV PRN (22:15)
[2022-02-05] MEDS: SODIUM CHLORIDE 0.9% 1,000 ML IV SCH (22:15)
[2022-02-05] MEDS ORDERED: IBUPROFEN 600 MG TAB PO PRN (22:15)
[2022-02-05] MEDS ORDERED: MORPHINE SULFATE INJ 2 MG/ml SYRG IV PRN (22:15)
[2022-02-05] MEDS ORDERED: metroNIDAZOLE 500MG/100ML 100 ML IV ONE (22:15)
[2022-02-05] MEDS ORDERED: HYDROcodone-ACET 5/325MG TAB PO PRN (22:15)
[2022-02-05] MEDS ORDERED: ONDANSETRON HCL 4 MG/2 ML VIAL IV PRN (22:15)
[2022-02-05] MEDS ORDERED: LACTATED RINGER'S 1,000 ML IV ONE (22:30)
[2022-02-05 23:26] VITALS: BP 126/81
[2022-02-06] MEDS: ACCU-CHEK COMFORT CURVE STRIP VI SCH ×5 (00:46→23:08)
[2022-02-06] MEDS: InsuLIN REG 1unit/0.01ml Soln (100units/ml) SC SCH ×5 (00:55→23:08)
[2022-02-06 05:51] VITALS: BP 119/70
[2022-02-06] MEDS: metroNIDAZOLE 500MG/100ML 100 ML IV SCH ×3 (06:11→22:35)
[2022-02-06 08:00] VITALS: BP 120/77
[2022-02-06] MEDS: FAMOTIDINE (10MG/ML) 2ML VL IV SCH ×2 (09:02→23:22)
[2022-02-06] MEDS: cefTRIAXone 1GM/50ML D5W 50 ML IV SCH (09:02)
[2022-02-06] MEDS: PHENYTOIN SODIUM 100 MG CAP PO SCH ×2 (09:02→23:08)
[2022-02-06] MEDS: ASPirin 81 mg TAB PO SCH (09:03)
[2022-02-06 09:38] LABS: Basophils # (auto) 0 10 ^3/uL (0-0.2); Basophils % (auto) 0.1 % (0.0-2.0); Eosinophils # (auto) 0 10 ^3/uL (0-0.8); Hematocrit 37.3 % (41.0-53.0); Hemoglobin 12.4 g/dL (13.5-17.5); Lymphocytes # (auto) 1.8 10 ^3/uL (0.4-5.4); Mean Corpuscular Hemoglobin 29.5 pg (28.0-32.0); Mean Corpuscular Hgb Conc. 33.1 g/dL (32.0-36.0); Mean Corpuscular Volume 89.1 fL (80.0-100.0); Monocytes # (auto) 0.4 10 ^3/uL (0-1.3); Monocytes % (auto) 2.8 % (0.0-12.0); Neutrophils # (auto) 13.8 10 ^3/uL (1.6-8.6); Neutrophils % (auto) 86.1 % (37.0-80.0); Red Blood Cells 4.18 10^6/uL (4.5-5.90); Red Cell Distribution Width 12.8 % (11.8-14.3); White Blood Cell 16.1 10^3/uL (4.4-10.8)
[2022-02-06 09:50] LABS: Potassium 3.9 mmol/L (3.5-5.1)
[2022-02-06 09:58] LABS: Albumin 2.9 g/dL (3.4-5.0); BUN/Creatinine Ratio 30.3; Bilirubin, Total 0.9 mg/dL (0.2-1.0); Calcium 8.9 mg/dL (8.5-10.1); Total Protein 6.2 g/dL (6.4-8.2)
[2022-02-06 13:00] VITALS: BP 90/56
[2022-02-06] MEDS: SODIUM CHLORIDE 0.9% 1,000 ML IV SCH (14:55)
[2022-02-06 17:19] VITALS: BP 121/68
[2022-02-06 22:00] VITALS: BP 120/78
[2022-02-07 05:00] VITALS: BP 110/70
[2022-02-07] MEDS: ACCU-CHEK COMFORT CURVE STRIP VI SCH ×4 (05:18→23:34)
[2022-02-07] MEDS: InsuLIN REG 1unit/0.01ml Soln (100units/ml) SC SCH ×4 (05:18→23:34)
[2022-02-07] MEDS: metroNIDAZOLE 500MG/100ML 100 ML IV SCH ×3 (05:24→22:00)
[2022-02-07] MEDS: SODIUM CHLORIDE 0.9% 1,000 ML IV SCH (07:35)
[2022-02-07 08:15] LABS: Basophils # (auto) 0 10 ^3/uL (0-0.2); Basophils % (auto) 0.1 % (0.0-2.0); Eosinophils # (auto) 0 10 ^3/uL (0-0.8); Eosinophils % (auto) 0.3 % (0.0-7.0); Hematocrit 33.4 % (41.0-53.0); Hemoglobin 11.3 g/dL (13.5-17.5); Lymphocytes # (auto) 1.7 10 ^3/uL (0.4-5.4); Mean Corpuscular Hemoglobin 29.9 pg (28.0-32.0); Mean Corpuscular Hgb Conc. 33.7 g/dL (32.0-36.0); Mean Corpuscular Volume 88.7 fL (80.0-100.0); Monocytes # (auto) 1.4 10 ^3/uL (0-1.3); Monocytes % (auto) 12.3 % (0.0-12.0); Neutrophils # (auto) 8.4 10 ^3/uL (1.6-8.6); Neutrophils % (auto) 72.3 % (37.0-80.0); Red Blood Cells 3.77 10^6/uL (4.5-5.90); Red Cell Distribution Width 12.7 % (11.8-14.3); White Blood Cell 11.6 10^3/uL (4.4-10.8)
[2022-02-07 08:44] LABS: Albumin 2.4 g/dL (3.4-5.0); BUN/Creatinine Ratio 54.8; Bilirubin, Direct 0.3 mg/dL (0-0.2); Bilirubin, Total 0.7 mg/dL (0.2-1.0); Calcium 8.1 mg/dL (8.5-10.1); Total Protein 5.4 g/dL (6.4-8.2)
[2022-02-07 09:00] VITALS: BP 125/64
[2022-02-07] MEDS: ASPirin 81 mg TAB PO SCH (09:13)
[2022-02-07] MEDS: cefTRIAXone 1GM/50ML D5W 50 ML IV SCH (09:13)
[2022-02-07] MEDS: PHENYTOIN SODIUM 100 MG CAP PO SCH ×2 (09:13→22:00)
[2022-02-07] MEDS: FAMOTIDINE (10MG/ML) 2ML VL IV SCH (09:13)
[2022-02-07 12:44] VITALS: BP 116/49
[2022-02-07 17:00] VITALS: BP 121/61
[2022-02-07] MEDS: SOD CHL 0.45% WITH 20MEQ KCL 1,000 ML IV SCH (18:50)
[2022-02-07] MEDS: IPRATROPIUM BROM 0.5 MG/2.5ML INH SOL NEB PRN (19:49)
[2022-02-07] MEDS: ALBUTEROL SULF 2.5 MG/0.5ML(0.5%) NEB SOLN NEB PRN (19:49)
[2022-02-07 22:00] VITALS: BP 122/61
[2022-02-08] MEDS: SOD CHL 0.45% WITH 20MEQ KCL 1,000 ML IV SCH ×3 (02:18→23:00)
[2022-02-08 05:00] VITALS: BP 93/69
[2022-02-08 05:20] LABS: Urine Bacteria None Seen /hpf (None Seen)
[2022-02-08 05:30] LABS: Protein, Urine 64.6 mg/dL (0.0-11.9)
[2022-02-08 05:44] LABS: Urine Specific Gravity 1.022 (1.001-1.035)
[2022-02-08 05:46] LABS: Urine Blood Normal /uL (Negative); Urine WBC 3 /hpf (0 - 3)
[2022-02-08] MEDS: InsuLIN REG 1unit/0.01ml Soln (100units/ml) SC SCH ×4 (05:55→23:49)
[2022-02-08] MEDS: ACCU-CHEK COMFORT CURVE STRIP VI SCH ×4 (05:55→23:37)
[2022-02-08] MEDS: metroNIDAZOLE 500MG/100ML 100 ML IV SCH ×3 (06:02→21:47)
[2022-02-08 06:42] LABS: Potassium 3.3 mmol/L (3.5-5.1)
[2022-02-08 06:49] LABS: Albumin 2.3 g/dL (3.4-5.0); BUN/Creatinine Ratio 48.5; Bilirubin, Total 0.6 mg/dL (0.2-1.0); Calcium 8.3 mg/dL (8.5-10.1); Phosphorus 2.2 mg/dL (2.5-4.90); Total Protein 5.1 g/dL (6.4-8.2)
[2022-02-08] MEDS ORDERED: ALBUTEROL MEDNEB 2.5 mg/3ml NEB ONE (08:13)
[2022-02-08] MEDS: ALBUTEROL SULF 2.5 MG/0.5ML(0.5%) NEB SOLN NEB PRN ×2 (08:16→18:45)
[2022-02-08] MEDS: IPRATROPIUM BROM 0.5 MG/2.5ML INH SOL NEB PRN ×2 (08:16→18:45)
[2022-02-08] MEDS: cefTRIAXone 1GM/50ML D5W 50 ML IV SCH (08:51)
[2022-02-08] MEDS: PHENYTOIN SODIUM 100 MG CAP PO SCH ×2 (08:51→21:48)
[2022-02-08] MEDS: ASPirin 81 mg TAB PO SCH (08:51)
[2022-02-08 09:00] VITALS: BP 139/77
[2022-02-08] MEDS ORDERED: methylPREDNISolone SOD SUCC 40 MG/ML VL IV ONE (11:30)
[2022-02-08 13:00] VITALS: BP 114/79
[2022-02-08 16:34] VITALS: BP 145/77
[2022-02-08] MEDS: methylPREDNISolone SOD SUCC 40 MG/ML VL IV SCH (21:47)
[2022-02-09] VITALS (81 sets, daily range): BP systolic 79–123; BP diastolic 25–71
[2022-02-09] MEDS ORDERED: LORazepam 2MG/ML-1ML VIAL ONE (02:24)
[2022-02-09] MEDS ORDERED: LORazepam 2MG/ML-1ML VIAL IM ONE (02:30)
[2022-02-09] MEDS ORDERED: LORazepam 2MG/ML-1ML VIAL IV ONE (02:45)
[2022-02-09] MEDS ORDERED: ETOMIDATE (2MG/ML) 20ML VIAL IV ONE (04:32)
[2022-02-09] MEDS ORDERED: SUCCINYLCHOLINE CHLORIDE 20 MG/ML 10ML VIAL IV ONE (04:32)
[2022-02-09] MEDS ORDERED: MIDAZOLAM DRIP 50 mg/50mL 50 ML IV ONE (04:53)
[2022-02-09] MEDS: MIDAZOLAM DRIP 50 mg/50mL 50 ML IV SCH ×4 (04:58→15:21)
[2022-02-09 05:16] LABS: Calcium 8.5 mg/dL (8.5-10.1); Potassium 4.8 mmol/L (3.5-5.1)
[2022-02-09 05:18] LABS: Basophils # (auto) 0 10 ^3/uL (0-0.2); Basophils % (auto) 0.1 % (0.0-2.0); Eosinophils # (auto) 0 10 ^3/uL (0-0.8); Hematocrit 34.3 % (41.0-53.0); Hemoglobin 11.1 g/dL (13.5-17.5); Lymphocytes # (auto) 0.5 10 ^3/uL (0.4-5.4); Lymphocytes % (auto) 2.1 % (10.0-50.0); Mean Corpuscular Hemoglobin 29.6 pg (28.0-32.0); Mean Corpuscular Hgb Conc. 32.3 g/dL (32.0-36.0); Mean Corpuscular Volume 91.7 fL (80.0-100.0); Monocytes # (auto) 1.9 10 ^3/uL (0-1.3); Monocytes % (auto) 8.8 % (0.0-12.0); Neutrophils # (auto) 18.8 10 ^3/uL (1.6-8.6); Red Blood Cells 3.74 10^6/uL (4.5-5.90); White Blood Cell 21.2 10^3/uL (4.4-10.8)
[2022-02-09] MEDS: IPRATROPIUM BROM 0.5 MG/2.5ML INH SOL NEB PRN (05:54)
[2022-02-09] MEDS: ALBUTEROL SULF 2.5 MG/0.5ML(0.5%) NEB SOLN NEB PRN (05:54)
[2022-02-09] MEDS: InsuLIN REG 1unit/0.01ml Soln (100units/ml) SC SCH ×3 (06:00→17:58)
[2022-02-09] MEDS: ACCU-CHEK COMFORT CURVE STRIP VI SCH ×3 (06:00→17:58)
[2022-02-09] MEDS: fentaNYL Drip 2500mCg/250mlNS 250 ML IV SCH (06:48)
[2022-02-09] MEDS: SOD CHL 0.45% WITH 20MEQ KCL 1,000 ML IV SCH ×2 (07:40→19:37)
[2022-02-09] MEDS: metroNIDAZOLE 500MG/100ML 100 ML IV SCH (08:00)
[2022-02-09] MEDS ORDERED: VANCOMYCIN PER PHARMACY 0 MG IV SCH (08:45)
[2022-02-09] MEDS ORDERED: VANCOMYCIN 1GM/250ML 250 ML IV ONE (09:00)
[2022-02-09] MEDS ORDERED: cefTRIAXone 1GM/50ML D5W 50 ML IV SCH (09:00)
[2022-02-09] MEDS: PIPERACILLIN-TAZOB 3.375GM 100 ML IV SCH ×2 (10:00→18:07)
[2022-02-09] MEDS ORDERED: PHENYTOIN SODIUM 50 MG/ML 2ML VIAL IV SCH ×2 (10:00→11:15)
[2022-02-09] MEDS ORDERED: SODIUM CHLORIDE 0.9% 500 ML IV ONE (10:00)
[2022-02-09] MEDS ORDERED: methylPREDNISolone SOD SUCC 40 MG/ML VL IV SCH (10:00)
[2022-02-09] MEDS: NOREPINEPHRINE 8 MG/250ML KIT 250 ML IV SCH (11:00)
[2022-02-09] MEDS: methylPREDNISolone SOD SUCC 40 MG/ML VL IV SCH ×2 (11:10→22:04)
[2022-02-09] MEDS: LINEZOLID 600MG/300ML 300 ML IV SCH ×2 (11:17→22:37)
[2022-02-09 12:22] LABS: INR 1.05 (0.9-1.15); Partial Thromboplastin Time 26.5 sec (24.6-33.4)
[2022-02-09] MEDS ORDERED: LIDOCAINE 1% (LOCAL ANESTH.) PF 5ml SDV ID ONE (14:30)
[2022-02-09] MEDS ORDERED: LORazepam 2MG/ML-1ML VIAL IV PRN (20:45)
[2022-02-09] MEDS: SODIUM CHLOR 0.9% PF (SALINE LOCK) 10ML VIAL/SYR IV SCH (21:52)
[2022-02-10] VITALS (104 sets, daily range): BP systolic 84–129; BP diastolic 42–61
[2022-02-10] MEDS: InsuLIN REG 1unit/0.01ml Soln (100units/ml) SC SCH ×5 (00:13→23:48)
[2022-02-10] MEDS: ACCU-CHEK COMFORT CURVE STRIP VI SCH ×5 (00:13→23:46)
[2022-02-10] MEDS: PIPERACILLIN-TAZOB 3.375GM 100 ML IV SCH ×3 (01:54→17:44)
[2022-02-10 04:53] LABS: BUN/Creatinine Ratio 40.6; Calcium 7.4 mg/dL (8.5-10.1)
[2022-02-10 04:58] LABS: Basophils # (auto) 0 10 ^3/uL (0-0.2); Eosinophils # (auto) 0 10 ^3/uL (0-0.8); Lymphocytes # (auto) 0.7 10 ^3/uL (0.4-5.4); Lymphocytes % (auto) 2.9 % (10.0-50.0); Mean Corpuscular Hemoglobin 29.3 pg (28.0-32.0); Mean Corpuscular Hgb Conc. 32.2 g/dL (32.0-36.0); Mean Corpuscular Volume 91.1 fL (80.0-100.0); Monocytes # (auto) 1.9 10 ^3/uL (0-1.3); Monocytes % (auto) 8.3 % (0.0-12.0); Neutrophils # (auto) 20.7 10 ^3/uL (1.6-8.6); Neutrophils % (auto) 88.8 % (37.0-80.0); Red Blood Cells 3.08 10^6/uL (4.5-5.90); Red Cell Distribution Width 13.3 % (11.8-14.3); White Blood Cell 23.3 10^3/uL (4.4-10.8)
[2022-02-10] MEDS: SOD CHL 0.45% WITH 20MEQ KCL 1,000 ML IV SCH (05:00)
[2022-02-10] MEDS: fentaNYL Drip 2500mCg/250mlNS 250 ML IV SCH ×2 (06:43→19:43)
[2022-02-10] MEDS: SODIUM CHLOR 0.9% PF (SALINE LOCK) 10ML VIAL/SYR IV SCH ×2 (09:26→21:25)
[2022-02-10] MEDS: LINEZOLID 600MG/300ML 300 ML IV SCH ×2 (09:44→21:25)
[2022-02-10] MEDS: methylPREDNISolone SOD SUCC 40 MG/ML VL IV SCH ×2 (09:45→21:25)
[2022-02-10] MEDS: PANTOPRAZOLE 40 MG/10 ML VIAL INJ IV SCH (09:45)
[2022-02-10] MEDS: MIDAZOLAM DRIP 50 mg/50mL 50 ML IV SCH ×3 (10:36→19:44)
[2022-02-10] MEDS: NOREPINEPHRINE 8 MG/250ML KIT 250 ML IV SCH (10:42)
[2022-02-10] MEDS ORDERED: SOD CHL 0.45% 1,000 ML IV SCH ×2 (12:30)
[2022-02-10] MEDS: DOPamine 1600MCG/ML D5W 250 ML IV SCH (12:57)
[2022-02-10] MEDS: SODIUM CHLORIDE 0.9% 1,000 ML IV SCH (14:44)
[2022-02-10] MEDS: FREE WATER GT SCH ×2 (18:10→23:46)
[2022-02-11] VITALS (102 sets, daily range): BP systolic 105–133; BP diastolic 50–68
[2022-02-11] MEDS: SODIUM CHLORIDE 0.9% 1,000 ML IV SCH ×3 (01:14→21:14)
[2022-02-11] MEDS: MIDAZOLAM DRIP 50 mg/50mL 50 ML IV SCH ×3 (01:16→20:26)
[2022-02-11] MEDS: PIPERACILLIN-TAZOB 3.375GM 100 ML IV SCH ×3 (01:42→18:13)
[2022-02-11] MEDS: ACCU-CHEK COMFORT CURVE STRIP VI SCH ×3 (05:46→18:12)
[2022-02-11] MEDS: FREE WATER GT SCH ×3 (05:47→18:12)
[2022-02-11] MEDS: InsuLIN REG 1unit/0.01ml Soln (100units/ml) SC SCH ×3 (05:47→18:00)
[2022-02-11] MEDS: fentaNYL Drip 2500mCg/250mlNS 250 ML IV SCH (08:55)
[2022-02-11 09:15] LABS: Mean Corpuscular Hemoglobin 29.1 pg (28.0-32.0)
[2022-02-11 09:17] LABS: Hematocrit 24.2 % (41.0-53.0); Hemoglobin 7.7 g/dL (13.5-17.5); Red Blood Cells 2.66 10^6/uL (4.5-5.90); Red Cell Distribution Width 13.4 % (11.8-14.3); White Blood Cell 16.8 10^3/uL (4.4-10.8)
[2022-02-11 09:19] LABS: Basophils % (manual) 0 (0.0-2.0); Blast Cells 0; Eosinophils % (manual) 0 (0-7); Metamyelocytes % 0; Myelocytes % 0; Promyelocytes % 0; Reactive Lymphocytes 0
[2022-02-11 09:30] LABS: Albumin 1.4 g/dL (3.4-5.0); Calcium 7.5 mg/dL (8.5-10.1); Potassium 3.8 mmol/L (3.5-5.1)
[2022-02-11 09:33] LABS: Bilirubin, Total 0.4 mg/dL (0.2-1.0); Total Protein 4.7 g/dL (6.4-8.2)
[2022-02-11 09:38] LABS: Band Neutrophils % (manual) 55; Lymphocytes % (manual) 14 (10.0-50.0); Monocytes % (manual) 4 (0-12)
[2022-02-11] MEDS: LINEZOLID 600MG/300ML 300 ML IV SCH ×2 (10:00→11:31)
[2022-02-11] MEDS: SODIUM CHLOR 0.9% PF (SALINE LOCK) 10ML VIAL/SYR IV SCH ×2 (10:00→21:46)
[2022-02-11] MEDS: NOREPINEPHRINE 8 MG/250ML KIT 250 ML IV SCH (10:15)
[2022-02-11] MEDS: methylPREDNISolone SOD SUCC 40 MG/ML VL IV SCH ×2 (11:31→21:47)
[2022-02-11] MEDS: PANTOPRAZOLE 40 MG/10 ML VIAL INJ IV SCH (11:33)
[2022-02-11] MEDS: DOPamine 1600MCG/ML D5W 250 ML IV SCH (12:30)
[2022-02-11] MEDS: IPRATROPIUM BROM 0.5 MG/2.5ML INH SOL NEB PRN (18:15)
[2022-02-11] MEDS: ALBUTEROL SULF 2.5 MG/0.5ML(0.5%) NEB SOLN NEB PRN (18:15)
[2022-02-12] VITALS (105 sets, daily range): BP systolic 107–164; BP diastolic 54–75
[2022-02-12] MEDS: ACCU-CHEK COMFORT CURVE STRIP VI SCH ×5 (00:12→23:42)
[2022-02-12] MEDS: FREE WATER GT SCH ×5 (00:12→23:41)
[2022-02-12] MEDS: fentaNYL Drip 2500mCg/250mlNS 250 ML IV SCH ×2 (01:26→17:48)
[2022-02-12] MEDS: PIPERACILLIN-TAZOB 3.375GM 100 ML IV SCH ×3 (02:01→17:38)
[2022-02-12] MEDS: MIDAZOLAM DRIP 50 mg/50mL 50 ML IV SCH ×3 (02:02→15:07)
[2022-02-12 04:06] LABS: Mean Corpuscular Volume 90.9 fL (80.0-100.0); Red Cell Distribution Width 13.2 % (11.8-14.3)
[2022-02-12 04:08] LABS: Hematocrit 24.4 % (41.0-53.0); Mean Corpuscular Hemoglobin 29.7 pg (28.0-32.0); Mean Corpuscular Hgb Conc. 32.7 g/dL (32.0-36.0); Red Blood Cells 2.69 10^6/uL (4.5-5.90); White Blood Cell 14.1 10^3/uL (4.4-10.8)
[2022-02-12 04:11] LABS: Basophils % (manual) 0 (0.0-2.0); Blast Cells 0; Eosinophils % (manual) 0 (0-7); Myelocytes % 0; Reactive Lymphocytes 0
[2022-02-12 04:23] LABS: Albumin 1.4 g/dL (3.4-5.0); Calcium 7.8 mg/dL (8.5-10.1); Potassium 3.9 mmol/L (3.5-5.1)
[2022-02-12 04:25] LABS: BUN/Creatinine Ratio 37.5
[2022-02-12 04:28] LABS: Bilirubin, Total 0.3 mg/dL (0.2-1.0); Total Protein 4.2 g/dL (6.4-8.2)
[2022-02-12 05:49] LABS: Band Neutrophils % (manual) 18; Lymphocytes % (manual) 7 (10.0-50.0); Metamyelocytes % 1; Monocytes % (manual) 3 (0-12); Promyelocytes % 1
[2022-02-12] MEDS: InsuLIN REG 1unit/0.01ml Soln (100units/ml) SC SCH ×5 (05:59→23:42)
[2022-02-12] MEDS: ALBUTEROL SULF 2.5 MG/0.5ML(0.5%) NEB SOLN NEB PRN ×2 (06:19→12:39)
[2022-02-12] MEDS: IPRATROPIUM BROM 0.5 MG/2.5ML INH SOL NEB PRN ×2 (06:19→12:39)
[2022-02-12] MEDS: SODIUM CHLORIDE 0.9% 1,000 ML IV SCH ×2 (07:52→17:33)
[2022-02-12] MEDS: NOREPINEPHRINE 8 MG/250ML KIT 250 ML IV SCH (10:15)
[2022-02-12] MEDS: methylPREDNISolone SOD SUCC 40 MG/ML VL IV SCH ×2 (10:27→21:32)
[2022-02-12] MEDS: PANTOPRAZOLE 40 MG/10 ML VIAL INJ IV SCH (10:27)
[2022-02-12] MEDS: SODIUM CHLOR 0.9% PF (SALINE LOCK) 10ML VIAL/SYR IV SCH ×2 (10:28→21:32)
[2022-02-12] MEDS: DOPamine 1600MCG/ML D5W 250 ML IV SCH (12:06)
[2022-02-12] MEDS: PROPOFOL 100 ML IV SCH ×2 (12:07→23:00)
[2022-02-12] MEDS ORDERED: FUROSEMIDE 20 MG/2 ML VIAL IV ONE (17:30)
[2022-02-12] MEDS ORDERED: HYALURONIDASE 150 UNIT/1 ML SUBCUT ONE (17:30)
[2022-02-13] VITALS (106 sets, daily range): BP systolic 106–179; BP diastolic 50–98
[2022-02-13] MEDS: SODIUM CHLORIDE 0.9% 1,000 ML IV SCH ×2 (02:30→12:30)
[2022-02-13] MEDS: PIPERACILLIN-TAZOB 3.375GM 100 ML IV SCH ×3 (03:21→17:22)
[2022-02-13] MEDS: PROPOFOL 100 ML IV SCH ×4 (04:06→21:35)
[2022-02-13] MEDS: InsuLIN REG 1unit/0.01ml Soln (100units/ml) SC SCH ×3 (06:00→17:22)
[2022-02-13] MEDS: ACCU-CHEK COMFORT CURVE STRIP VI SCH ×3 (06:06→17:21)
[2022-02-13] MEDS: FREE WATER GT SCH ×3 (06:06→17:22)
[2022-02-13] MEDS: MIDAZOLAM DRIP 50 mg/50mL 50 ML IV SCH ×2 (08:00→20:08)
[2022-02-13] MEDS: SODIUM CHLOR 0.9% PF (SALINE LOCK) 10ML VIAL/SYR IV SCH ×2 (10:00→22:00)
[2022-02-13] MEDS: NOREPINEPHRINE 8 MG/250ML KIT 250 ML IV SCH (10:15)
[2022-02-13] MEDS: PANTOPRAZOLE 40 MG/10 ML VIAL INJ IV SCH (10:59)
[2022-02-13] MEDS: methylPREDNISolone SOD SUCC 40 MG/ML VL IV SCH ×2 (10:59→21:54)
[2022-02-13] MEDS: fentaNYL Drip 2500mCg/250mlNS 250 ML IV SCH (12:14)
[2022-02-13] MEDS: DOPamine 1600MCG/ML D5W 250 ML IV SCH (12:30)
[2022-02-13] MEDS: IPRATROPIUM BROM 0.5 MG/2.5ML INH SOL NEB PRN (18:22)
[2022-02-13] MEDS: ALBUTEROL SULF 2.5 MG/0.5ML(0.5%) NEB SOLN NEB PRN (18:22)
[2022-02-14] VITALS (94 sets, daily range): BP systolic 124–167; BP diastolic 63–104
[2022-02-14] MEDS: SODIUM CHLORIDE 0.9% 1,000 ML IV SCH ×4 (00:28→21:25)
[2022-02-14] MEDS: FREE WATER GT SCH ×4 (00:28→17:51)
[2022-02-14] MEDS: ACCU-CHEK COMFORT CURVE STRIP VI SCH ×4 (00:29→17:52)
[2022-02-14] MEDS: PIPERACILLIN-TAZOB 3.375GM 100 ML IV SCH ×2 (02:29→10:10)
[2022-02-14] MEDS: PROPOFOL 100 ML IV SCH ×4 (03:41→23:00)
[2022-02-14] MEDS: InsuLIN REG 1unit/0.01ml Soln (100units/ml) SC SCH ×4 (06:00→17:51)
[2022-02-14 09:23] LABS: Hematocrit 26.5 % (41.0-53.0); Hemoglobin 8.6 g/dL (13.5-17.5); Mean Corpuscular Hemoglobin 28.8 pg (28.0-32.0); Mean Corpuscular Hgb Conc. 32.4 g/dL (32.0-36.0); Red Blood Cells 2.98 10^6/uL (4.5-5.90); Red Cell Distribution Width 13.5 % (11.8-14.3); White Blood Cell 17.4 10^3/uL (4.4-10.8)
[2022-02-14 09:31] LABS: Basophils % (manual) 0 (0.0-2.0); Blast Cells 0; Metamyelocytes % 0; Promyelocytes % 0; Reactive Lymphocytes 0
[2022-02-14 09:39] LABS: Albumin 1.4 g/dL (3.4-5.0); Calcium 7.9 mg/dL (8.5-10.1); Potassium 3.1 mmol/L (3.5-5.1)
[2022-02-14 09:42] LABS: Bilirubin, Total 0.4 mg/dL (0.2-1.0); Total Protein 5.4 g/dL (6.4-8.2)
[2022-02-14] MEDS: methylPREDNISolone SOD SUCC 40 MG/ML VL IV SCH ×2 (10:10→21:33)
[2022-02-14] MEDS: SODIUM CHLOR 0.9% PF (SALINE LOCK) 10ML VIAL/SYR IV SCH ×2 (10:10→21:33)
[2022-02-14] MEDS: PANTOPRAZOLE 40 MG/10 ML VIAL INJ IV SCH (10:10)
[2022-02-14] MEDS: NOREPINEPHRINE 8 MG/250ML KIT 250 ML IV SCH (10:15)
[2022-02-14] MEDS: ALBUTEROL SULF 2.5 MG/0.5ML(0.5%) NEB SOLN NEB PRN ×2 (12:12→18:23)
[2022-02-14] MEDS: IPRATROPIUM BROM 0.5 MG/2.5ML INH SOL NEB PRN ×2 (12:12→18:23)
[2022-02-14] MEDS: DOPamine 1600MCG/ML D5W 250 ML IV SCH ×2 (12:30→21:02)
[2022-02-14] MEDS: POTASSIUM CHL 20MEQ/100ML 100 ML IV SCH ×2 (13:09→15:09)
[2022-02-14 13:22] LABS: Band Neutrophils % (manual) 32; Eosinophils % (manual) 1 (0-7); Lymphocytes % (manual) 14 (10.0-50.0); Monocytes % (manual) 7 (0-12); Myelocytes % 1
[2022-02-14] MEDS ORDERED: ERTAPENEM SOD INJ 1 GM in SODIUM CHL 0.9% 50 ML IV ONE (16:00)
[2022-02-15] VITALS (105 sets, daily range): BP systolic 110–162; BP diastolic 50–92
[2022-02-15] MEDS: PROPOFOL 100 ML IV SCH ×2 (00:03→05:21)
[2022-02-15] MEDS: ACCU-CHEK COMFORT CURVE STRIP VI SCH ×5 (00:17→23:43)
[2022-02-15] MEDS: FREE WATER GT SCH ×5 (00:54→23:39)
[2022-02-15] MEDS: IPRATROPIUM BROM 0.5 MG/2.5ML INH SOL NEB PRN ×3 (02:10→12:22)
[2022-02-15] MEDS: ALBUTEROL SULF 2.5 MG/0.5ML(0.5%) NEB SOLN NEB PRN ×3 (02:10→12:22)
[2022-02-15 04:24] LABS: BUN/Creatinine Ratio 24.6
[2022-02-15] MEDS: MIDAZOLAM DRIP 50 mg/50mL 50 ML IV SCH (04:45)
[2022-02-15] MEDS: InsuLIN REG 1unit/0.01ml Soln (100units/ml) SC SCH ×5 (05:42→23:44)
[2022-02-15] MEDS: fentaNYL Drip 2500mCg/250mlNS 250 ML IV SCH (06:30)
[2022-02-15] MEDS ORDERED: POTASSIUM CHL 20MEQ/100ML 100 ML IV ONE ×2 (08:30→14:45)
[2022-02-15] MEDS: PANTOPRAZOLE 40 MG/10 ML VIAL INJ IV SCH (09:56)
[2022-02-15] MEDS: methylPREDNISolone SOD SUCC 40 MG/ML VL IV SCH ×2 (09:56→22:14)
[2022-02-15] MEDS: ERTAPENEM SOD INJ 1 GM in SODIUM CHL 0.9% 50 ML IV SCH (09:57)
[2022-02-15] MEDS: SODIUM CHLOR 0.9% PF (SALINE LOCK) 10ML VIAL/SYR IV SCH ×2 (09:58→22:14)
[2022-02-15] MEDS: NOREPINEPHRINE 8 MG/250ML KIT 250 ML IV SCH (10:15)
[2022-02-15] MEDS: SODIUM CHLORIDE 0.9% 1,000 ML IV SCH ×2 (13:21→18:22)
[2022-02-15] MEDS ORDERED: TPN PER PHARMACY 0 ML IV SCH (16:15)
[2022-02-15] MEDS ORDERED: CLINIMIX PER PHARMACY IV NR (20:00)
[2022-02-16] VITALS (104 sets, daily range): BP systolic 94–165; BP diastolic 51–106
[2022-02-16] MEDS: IPRATROPIUM BROM 0.5 MG/2.5ML INH SOL NEB PRN (00:34)
[2022-02-16] MEDS: ALBUTEROL SULF 2.5 MG/0.5ML(0.5%) NEB SOLN NEB PRN (00:34)
[2022-02-16 03:31] LABS: Hemoglobin 8.8 g/dL (13.5-17.5); Mean Corpuscular Hgb Conc. 32.2 g/dL (32.0-36.0)
[2022-02-16 03:34] LABS: Hematocrit 27.2 % (41.0-53.0); Mean Corpuscular Hemoglobin 29.1 pg (28.0-32.0); Mean Corpuscular Volume 90.5 fL (80.0-100.0); Red Blood Cells 3.01 10^6/uL (4.5-5.90); Red Cell Distribution Width 13.5 % (11.8-14.3); White Blood Cell 16.9 10^3/uL (4.4-10.8)
[2022-02-16 03:50] LABS: Albumin 1.6 g/dL (3.4-5.0); Calcium 8.1 mg/dL (8.5-10.1); Magnesium 1.6 mg/dL (1.6-2.6)
[2022-02-16 03:52] LABS: Basophils % (manual) 0 (0.0-2.0); Blast Cells 0; Eosinophils % (manual) 0 (0-7); Metamyelocytes % 0; Promyelocytes % 0; Reactive Lymphocytes 0
[2022-02-16 03:54] LABS: BUN/Creatinine Ratio 31.8; Bilirubin, Total 0.4 mg/dL (0.2-1.0); Phosphorus 2.5 mg/dL (2.5-4.90); Total Protein 5.6 g/dL (6.4-8.2)
[2022-02-16] MEDS: POTASSIUM CHL 20MEQ/100ML 100 ML IV SCH ×2 (04:29→06:39)
[2022-02-16] MEDS: MIDAZOLAM DRIP 50 mg/50mL 50 ML IV SCH (04:45)
[2022-02-16] MEDS: FREE WATER GT SCH ×3 (05:45→17:11)
[2022-02-16] MEDS: ACCU-CHEK COMFORT CURVE STRIP VI SCH ×3 (05:45→17:12)
[2022-02-16] MEDS: InsuLIN REG 1unit/0.01ml Soln (100units/ml) SC SCH ×3 (05:46→17:11)
[2022-02-16 06:26] LABS: Band Neutrophils % (manual) 12; Lymphocytes % (manual) 5 (10.0-50.0); Monocytes % (manual) 4 (0-12); Myelocytes % 2
[2022-02-16] MEDS: fentaNYL Drip 2500mCg/250mlNS 250 ML IV SCH ×2 (06:30→15:43)
[2022-02-16] MEDS: methylPREDNISolone SOD SUCC 40 MG/ML VL IV SCH ×2 (09:31→22:18)
[2022-02-16] MEDS: PANTOPRAZOLE 40 MG/10 ML VIAL INJ IV SCH (09:31)
[2022-02-16] MEDS: ERTAPENEM SOD INJ 1 GM in SODIUM CHL 0.9% 50 ML IV SCH (09:31)
[2022-02-16] MEDS: SODIUM CHLOR 0.9% PF (SALINE LOCK) 10ML VIAL/SYR IV SCH ×2 (09:37→22:06)
[2022-02-16] MEDS: SODIUM CHLORIDE 0.9% 1,000 ML IV SCH ×3 (09:40→18:19)
[2022-02-16] MEDS ORDERED: MAGNESIUM SULFATE 1GM/100ML 100 ML IV ONE (10:30)
[2022-02-16] MEDS ORDERED: POTASSIUM CHL 20MEQ/100ML 100 ML IV ONE (10:30)
[2022-02-16] MEDS: DOPamine 1600MCG/ML D5W 250 ML IV SCH (11:20)
[2022-02-16] MEDS ORDERED: TPN PER PHARMACY IV NR ×8 (20:00)
[2022-02-17] VITALS (104 sets, daily range): BP systolic 105–152; BP diastolic 49–77
[2022-02-17] MEDS: FREE WATER GT SCH ×5 (00:06→23:01)
[2022-02-17] MEDS: ACCU-CHEK COMFORT CURVE STRIP VI SCH ×5 (00:13→23:01)
[2022-02-17] MEDS: SODIUM CHLORIDE 0.9% 1,000 ML IV SCH (04:15)
[2022-02-17 05:19] LABS: Albumin 1.7 g/dL (3.4-5.0); Calcium 7.7 mg/dL (8.5-10.1); Magnesium 2.1 mg/dL (1.6-2.6); Potassium 3.7 mmol/L (3.5-5.1)
[2022-02-17 05:23] LABS: BUN/Creatinine Ratio 31.3; Bilirubin, Total 0.5 mg/dL (0.2-1.0); Phosphorus 2.6 mg/dL (2.5-4.90); Total Protein 4.8 g/dL (6.4-8.2)
[2022-02-17] MEDS: InsuLIN REG 1unit/0.01ml Soln (100units/ml) SC SCH ×5 (06:00→23:28)
[2022-02-17 07:34] LABS: Hematocrit 26.7 % (41.0-53.0); Hemoglobin 8.7 g/dL (13.5-17.5); Mean Corpuscular Hemoglobin 28.9 pg (28.0-32.0); Mean Corpuscular Hgb Conc. 32.4 g/dL (32.0-36.0); Mean Corpuscular Volume 89.3 fL (80.0-100.0); Red Blood Cells 2.99 10^6/uL (4.5-5.90); Red Cell Distribution Width 13.2 % (11.8-14.3); White Blood Cell 19.8 10^3/uL (4.4-10.8)
[2022-02-17 07:38] LABS: Basophils % (manual) 0 (0.0-2.0); Blast Cells 0; Myelocytes % 0; Promyelocytes % 0; Reactive Lymphocytes 0
[2022-02-17 08:55] LABS: Band Neutrophils % (manual) 2; Eosinophils % (manual) 1 (0-7); Lymphocytes % (manual) 11 (10.0-50.0); Metamyelocytes % 2; Monocytes % (manual) 7 (0-12)
[2022-02-17] MEDS: PANTOPRAZOLE 40 MG/10 ML VIAL INJ IV SCH (10:20)
[2022-02-17] MEDS: methylPREDNISolone SOD SUCC 40 MG/ML VL IV SCH ×2 (10:20→21:13)
[2022-02-17] MEDS: ERTAPENEM SOD INJ 1 GM in SODIUM CHL 0.9% 50 ML IV SCH (10:21)
[2022-02-17] MEDS: SODIUM CHLOR 0.9% PF (SALINE LOCK) 10ML VIAL/SYR IV SCH ×2 (10:22→21:13)
[2022-02-17] MEDS: DOPamine 1600MCG/ML D5W 250 ML IV SCH (13:32)
[2022-02-17] MEDS: MORPHINE SULFATE INJ 2 MG/ml SYRG IV PRN ×2 (17:34→23:00)
[2022-02-17] MEDS ORDERED: TPN PER PHARMACY IV NR ×9 (20:00)
[2022-02-17] MEDS: MEROPENEM 1GM IVPB 100 ML IV SCH (21:12)
[2022-02-18] VITALS (79 sets, daily range): BP systolic 84–146; BP diastolic 44–71
[2022-02-18 02:19] LABS: Eosinophils # (auto) 0 10 ^3/uL (0-0.8); Lymphocytes # (auto) 0.6 10 ^3/uL (0.4-5.4); Red Cell Distribution Width 13.7 % (11.8-14.3)
[2022-02-18 02:21] LABS: Basophils # (auto) 0 10 ^3/uL (0-0.2); Basophils % (auto) 0.2 % (0.0-2.0); Eosinophils % (auto) 0.1 % (0.0-7.0); Hematocrit 23.2 % (41.0-53.0); Hemoglobin 7.8 g/dL (13.5-17.5); Lymphocytes % (auto) 2.9 % (10.0-50.0); Mean Corpuscular Hgb Conc. 33.6 g/dL (32.0-36.0); Mean Corpuscular Volume 89.5 fL (80.0-100.0); Monocytes # (auto) 1.4 10 ^3/uL (0-1.3); Monocytes % (auto) 6.6 % (0.0-12.0); Neutrophils # (auto) 19.3 10 ^3/uL (1.6-8.6); Neutrophils % (auto) 90.2 % (37.0-80.0); White Blood Cell 21.4 10^3/uL (4.4-10.8)
[2022-02-18 02:37] LABS: Albumin 1.5 g/dL (3.4-5.0); BUN/Creatinine Ratio 34.6; Calcium 7.5 mg/dL (8.5-10.1); Magnesium 1.6 mg/dL (1.6-2.6); Potassium 3.3 mmol/L (3.5-5.1)
[2022-02-18 02:40] LABS: Bilirubin, Total 0.4 mg/dL (0.2-1.0)
[2022-02-18] MEDS: fentaNYL Drip 2500mCg/250mlNS 250 ML IV SCH (04:59)
[2022-02-18] MEDS: FREE WATER GT SCH ×3 (05:02→18:00)
[2022-02-18] MEDS: ACCU-CHEK COMFORT CURVE STRIP VI SCH ×3 (05:20→18:04)
[2022-02-18] MEDS: InsuLIN REG 1unit/0.01ml Soln (100units/ml) SC SCH ×3 (05:21→18:14)
[2022-02-18] MEDS: MEROPENEM 1GM IVPB 100 ML IV SCH ×3 (05:27→22:34)
[2022-02-18] MEDS: IPRATROPIUM BROM 0.5 MG/2.5ML INH SOL NEB PRN ×3 (06:51→18:02)
[2022-02-18] MEDS: ALBUTEROL SULF 2.5 MG/0.5ML(0.5%) NEB SOLN NEB PRN ×3 (06:51→18:02)
[2022-02-18] MEDS: POTASSIUM CHL 20MEQ/100ML 100 ML IV SCH ×2 (09:56→12:20)
[2022-02-18] MEDS: PANTOPRAZOLE 40 MG/10 ML VIAL INJ IV SCH (10:01)
[2022-02-18] MEDS: methylPREDNISolone SOD SUCC 40 MG/ML VL IV SCH ×2 (10:01→22:38)
[2022-02-18] MEDS: SODIUM CHLOR 0.9% PF (SALINE LOCK) 10ML VIAL/SYR IV SCH ×2 (10:02→22:38)
[2022-02-18] MEDS ORDERED: MAGNESIUM SULFATE 1GM/100ML 100 ML IV ONE (11:00)
[2022-02-18] MEDS ORDERED: TPN PER PHARMACY IV NR ×9 (20:00)
[2022-02-19] VITALS (39 sets, daily range): BP systolic 115–144; BP diastolic 53–82
[2022-02-19] MEDS: ACCU-CHEK COMFORT CURVE STRIP VI SCH ×4 (00:19→17:27)
[2022-02-19] MEDS: InsuLIN REG 1unit/0.01ml Soln (100units/ml) SC SCH ×4 (00:23→17:28)
[2022-02-19 04:33] LABS: Albumin 1.7 g/dL (3.4-5.0); BUN/Creatinine Ratio 36.5; Calcium 7.8 mg/dL (8.5-10.1); Potassium 4.2 mmol/L (3.5-5.1)
[2022-02-19 04:36] LABS: Bilirubin, Total 0.4 mg/dL (0.2-1.0); Phosphorus 2.9 mg/dL (2.5-4.90); Total Protein 5.2 g/dL (6.4-8.2)
[2022-02-19] MEDS: FREE WATER GT SCH ×4 (06:00→18:00)
[2022-02-19] MEDS: MEROPENEM 1GM IVPB 100 ML IV SCH ×3 (06:13→22:09)
[2022-02-19] MEDS: fentaNYL Drip 2500mCg/250mlNS 250 ML IV SCH (06:30)
[2022-02-19] MEDS: PANTOPRAZOLE 40 MG/10 ML VIAL INJ IV SCH (09:10)
[2022-02-19] MEDS: methylPREDNISolone SOD SUCC 40 MG/ML VL IV SCH ×2 (09:10→22:10)
[2022-02-19] MEDS: SODIUM CHLOR 0.9% PF (SALINE LOCK) 10ML VIAL/SYR IV SCH ×2 (09:11→22:09)
[2022-02-19] MEDS ORDERED: TPN PER PHARMACY IV NR ×9 (20:00)
[2022-02-20] VITALS: BP 135/62
[2022-02-20] MEDS: FREE WATER GT SCH
[2022-02-20 05:00] VITALS: BP 134/74
[2022-02-20] MEDS: ACCU-CHEK COMFORT CURVE STRIP VI SCH ×4 (06:00→17:40)
[2022-02-20] MEDS: InsuLIN REG 1unit/0.01ml Soln (100units/ml) SC SCH ×4 (06:40→17:41)
[2022-02-20 08:00] VITALS: BP 143/69
[2022-02-20] MEDS: MEROPENEM 1GM IVPB 100 ML IV SCH ×2 (09:06→18:05)
[2022-02-20 10:25] LABS: Albumin 1.8 g/dL (3.4-5.0); Calcium 8.2 mg/dL (8.5-10.1); Magnesium 2.1 mg/dL (1.6-2.6); Potassium 3.5 mmol/L (3.5-5.1)
[2022-02-20 10:30] LABS: BUN/Creatinine Ratio 52.2; Bilirubin, Total 0.3 mg/dL (0.2-1.0); Phosphorus 2.7 mg/dL (2.5-4.90); Total Protein 5.7 g/dL (6.4-8.2)
[2022-02-20] MEDS: SODIUM CHLOR 0.9% PF (SALINE LOCK) 10ML VIAL/SYR IV SCH ×2 (11:15→21:55)
[2022-02-20] MEDS: PANTOPRAZOLE 40 MG/10 ML VIAL INJ IV SCH (11:15)
[2022-02-20] MEDS: methylPREDNISolone SOD SUCC 40 MG/ML VL IV SCH ×2 (11:16→21:55)
[2022-02-20 12:00] VITALS: BP 134/71
[2022-02-20] MEDS: FLUCONAZOLE 200MG/100ML 100 ML IV SCH ×2 (12:35→13:25)
[2022-02-20 16:00] VITALS: BP 154/77
[2022-02-20] MEDS ORDERED: TPN PER PHARMACY IV NR ×8 (20:00)
[2022-02-20 22:00] VITALS: BP 149/74
[2022-02-21] MEDS: MEROPENEM 1GM IVPB 100 ML IV SCH ×2 (00:40→08:35)
[2022-02-21] MEDS: InsuLIN REG 1unit/0.01ml Soln (100units/ml) SC SCH ×4 (00:52→18:00)
[2022-02-21 01:28] VITALS: BP 149/74
[2022-02-21 05:00] VITALS: BP 143/78
[2022-02-21] MEDS: ACCU-CHEK COMFORT CURVE STRIP VI SCH ×4 (06:07→18:16)
[2022-02-21 08:15] VITALS: BP 108/66
[2022-02-21] MEDS ORDERED: ERTAPENEM SOD INJ 1 GM in SODIUM CHL 0.9% 50 ML IV SCH (10:00)
[2022-02-21] MEDS: SODIUM CHLOR 0.9% PF (SALINE LOCK) 10ML VIAL/SYR IV SCH ×2 (10:40→22:16)
[2022-02-21] MEDS: PANTOPRAZOLE 40 MG/10 ML VIAL INJ IV SCH (10:40)
[2022-02-21] MEDS: methylPREDNISolone SOD SUCC 40 MG/ML VL IV SCH ×2 (10:40→22:17)
[2022-02-21] MEDS: FLUCONAZOLE 200MG/100ML 100 ML IV SCH ×2 (11:40→13:46)
[2022-02-21 12:25] VITALS: BP 121/59
[2022-02-21 14:48] LABS: Hematocrit 28.3 % (41.0-53.0); Hemoglobin 9.2 g/dL (13.5-17.5); Mean Corpuscular Hemoglobin 30.4 pg (28.0-32.0); Mean Corpuscular Hgb Conc. 32.5 g/dL (32.0-36.0); Mean Corpuscular Volume 93.5 fL (80.0-100.0); Red Blood Cells 3.03 10^6/uL (4.5-5.90); Red Cell Distribution Width 13.8 % (11.8-14.3)
[2022-02-21 14:57] LABS: Basophils % (manual) 0 (0.0-2.0); Blast Cells 0; Eosinophils % (manual) 0 (0-7); Metamyelocytes % 0; Myelocytes % 0; Promyelocytes % 0; Reactive Lymphocytes 0
[2022-02-21 15:06] LABS: Anion Gap 9 (5-15); BUN/Creatinine Ratio 52.1; Blood Urea Nitrogen 25 mg/dL (7-18); Carbon Dioxide 23 mmol/L (21-32); Chloride 109 mmol/L (98-107); GFR African American 219 mL/min; GFR Non-African American 181 mL/min; Glucose 112 mg/dL (74-106); Potassium 4.1 mmol/L (3.5-5.1); Sodium 141 mmol/L (136-145)
[2022-02-21 15:07] LABS: Alanine Aminotransferase 199 U/L (16-61); Alkaline Phosphatase 168 U/L (45-117); Aspartate Aminotransferase 99 U/L (15-37); Bilirubin, Total 0.4 mg/dL (0.2-1.0); Calcium 8.5 mg/dL (8.5-10.1); Total Protein 6.1 g/dL (6.4-8.2)
[2022-02-21 16:15] VITALS: BP 145/72
[2022-02-21 16:39] LABS: Band Neutrophils % (manual) 6; Lymphocytes % (manual) 3 (10.0-50.0); Monocytes % (manual) 2 (0-12)
[2022-02-21] MEDS: ERTAPENEM SOD INJ 1 GM in SODIUM CHL 0.9% 50 ML IV SCH (18:49)
[2022-02-21 22:00] VITALS: BP 132/64
[2022-02-22] VITALS (7 sets, daily range): BP systolic 130–138; BP diastolic 68–75
[2022-02-22] MEDS: ACCU-CHEK COMFORT CURVE STRIP VI SCH ×5 (01:05→23:43)
[2022-02-22] MEDS: InsuLIN REG 1unit/0.01ml Soln (100units/ml) SC SCH ×5 (01:15→23:47)
[2022-02-22] MEDS: PANTOPRAZOLE 40 MG/10 ML VIAL INJ IV SCH (09:41)
[2022-02-22] MEDS: FLUCONAZOLE 200MG/100ML 100 ML IV SCH ×2 (09:41→11:18)
[2022-02-22] MEDS: methylPREDNISolone SOD SUCC 40 MG/ML VL IV SCH ×2 (09:41→23:42)
[2022-02-22] MEDS: SODIUM CHLOR 0.9% PF (SALINE LOCK) 10ML VIAL/SYR IV SCH ×2 (09:42→23:42)
[2022-02-22] MEDS: ERTAPENEM SOD INJ 1 GM in SODIUM CHL 0.9% 50 ML IV SCH (18:13)
[2022-02-23] VITALS (7 sets, daily range): BP systolic 113–133; BP diastolic 56–73
[2022-02-23] MEDS: ACCU-CHEK COMFORT CURVE STRIP VI SCH ×4 (05:47→23:33)
[2022-02-23] MEDS: InsuLIN REG 1unit/0.01ml Soln (100units/ml) SC SCH ×4 (05:48→23:36)
[2022-02-23] MEDS: PANTOPRAZOLE 40 MG/10 ML VIAL INJ IV SCH (09:52)
[2022-02-23] MEDS: methylPREDNISolone SOD SUCC 40 MG/ML VL IV SCH ×2 (09:57→21:40)
[2022-02-23] MEDS: SODIUM CHLOR 0.9% PF (SALINE LOCK) 10ML VIAL/SYR IV SCH ×2 (10:09→21:39)
[2022-02-23] MEDS: ERTAPENEM SOD INJ 1 GM in SODIUM CHL 0.9% 50 ML IV SCH (18:03)
[2022-02-24] VITALS (7 sets, daily range): BP systolic 122–135; BP diastolic 62–75
[2022-02-24] MEDS: ACCU-CHEK COMFORT CURVE STRIP VI SCH ×3 (05:38→18:00)
[2022-02-24] MEDS: InsuLIN REG 1unit/0.01ml Soln (100units/ml) SC SCH ×3 (05:43→18:00)
[2022-02-24] MEDS: methylPREDNISolone SOD SUCC 40 MG/ML VL IV SCH (09:57)
[2022-02-24] MEDS: SODIUM CHLOR 0.9% PF (SALINE LOCK) 10ML VIAL/SYR IV SCH ×2 (09:57→21:37)
[2022-02-24] MEDS: PANTOPRAZOLE 40 MG/10 ML VIAL INJ IV SCH (09:57)
[2022-02-24] MEDS ORDERED: predniSONE 20 MG TAB PO ONE (10:15)
[2022-02-24] MEDS: ERTAPENEM SOD INJ 1 GM in SODIUM CHL 0.9% 50 ML IV SCH (18:21)
[2022-02-25] MEDS: ACCU-CHEK COMFORT CURVE STRIP VI SCH ×5 (00:17→23:46)
[2022-02-25 05:00] VITALS: BP 125/56
[2022-02-25] MEDS: InsuLIN REG 1unit/0.01ml Soln (100units/ml) SC SCH ×5 (05:53→23:46)
[2022-02-25 06:25] LABS: Basophils # (auto) 0 10 ^3/uL (0-0.2); Basophils % (auto) 0.1 % (0.0-2.0); Eosinophils # (auto) 0 10 ^3/uL (0-0.8); Eosinophils % (auto) 0.2 % (0.0-7.0); Hematocrit 28.4 % (41.0-53.0); Hemoglobin 9.3 g/dL (13.5-17.5); Lymphocytes # (auto) 2.1 10 ^3/uL (0.4-5.4); Lymphocytes % (auto) 13.7 % (10.0-50.0); Mean Corpuscular Hemoglobin 30.3 pg (28.0-32.0); Mean Corpuscular Hgb Conc. 32.8 g/dL (32.0-36.0); Mean Corpuscular Volume 92.3 fL (80.0-100.0); Monocytes # (auto) 1.6 10 ^3/uL (0-1.3); Monocytes % (auto) 10.3 % (0.0-12.0); Neutrophils # (auto) 11.9 10 ^3/uL (1.6-8.6); Neutrophils % (auto) 75.7 % (37.0-80.0); Nucleated Red Blood Cells % 0.1 %; Red Blood Cells 3.08 10^6/uL (4.5-5.90); Red Cell Distribution Width 13.8 % (11.8-14.3); White Blood Cell 15.6 10^3/uL (4.4-10.8)
[2022-02-25 06:47] LABS: Potassium 3.4 mmol/L (3.5-5.1)
[2022-02-25 06:53] LABS: Calcium 8.2 mg/dL (8.5-10.1)
[2022-02-25 08:59] VITALS: BP 129/65
[2022-02-25] MEDS: PANTOPRAZOLE 40 MG/10 ML VIAL INJ IV SCH (09:33)
[2022-02-25] MEDS: SODIUM CHLOR 0.9% PF (SALINE LOCK) 10ML VIAL/SYR IV SCH ×2 (09:34→21:54)
[2022-02-25 13:00] VITALS: BP 89/47
[2022-02-25] MEDS ORDERED: CEFEPIME 1GM/ 50ML 50 ML IV ONE (13:30)
[2022-02-25] MEDS ORDERED: CIPROFLOXACIN 400MG/200ML 200 ML IV ONE (13:30)
[2022-02-25] MEDS: CEFEPIME 2GM/50ML NS 50 ML IV SCH (15:48)
[2022-02-25 17:00] VITALS: BP 112/61
[2022-02-25 22:00] VITALS: BP 104/59
[2022-02-25] MEDS: CIPROFLOXACIN 400MG/200ML 200 ML IV SCH (23:23)
[2022-02-26] MEDS: CEFEPIME 2GM/50ML NS 50 ML IV SCH ×2 (03:09→15:32)
[2022-02-26 05:00] VITALS: BP 132/58
[2022-02-26] MEDS: InsuLIN REG 1unit/0.01ml Soln (100units/ml) SC SCH ×3 (05:37→18:00)
[2022-02-26] MEDS: ACCU-CHEK COMFORT CURVE STRIP VI SCH ×3 (05:38→18:00)
[2022-02-26 09:07] VITALS: BP 111/55
[2022-02-26] MEDS: PANTOPRAZOLE 40 MG/10 ML VIAL INJ IV SCH (10:54)
[2022-02-26] MEDS: SODIUM CHLOR 0.9% PF (SALINE LOCK) 10ML VIAL/SYR IV SCH ×2 (10:59→21:47)
[2022-02-26] MEDS: CIPROFLOXACIN 400MG/200ML 200 ML IV SCH ×2 (11:39→22:24)
[2022-02-26 13:17] VITALS: BP 107/54
[2022-02-26 17:33] VITALS: BP 109/54
[2022-02-26 21:45] VITALS: BP 115/55
[2022-02-27 02:30] VITALS: BP 138/75
[2022-02-27] MEDS: CEFEPIME 2GM/50ML NS 50 ML IV SCH ×2 (02:40→14:56)
[2022-02-27 05:00] VITALS: BP 103/59
[2022-02-27] MEDS: InsuLIN REG 1unit/0.01ml Soln (100units/ml) SC SCH ×5 (05:41→23:31)
[2022-02-27] MEDS: ACCU-CHEK COMFORT CURVE STRIP VI SCH ×5 (05:42→23:30)
[2022-02-27 09:00] VITALS: BP 107/61
[2022-02-27] MEDS: PANTOPRAZOLE 40 MG/10 ML VIAL INJ IV SCH (09:36)
[2022-02-27] MEDS: SODIUM CHLOR 0.9% PF (SALINE LOCK) 10ML VIAL/SYR IV SCH ×2 (09:37→21:28)
[2022-02-27] MEDS: CIPROFLOXACIN 400MG/200ML 200 ML IV SCH ×2 (11:10→23:22)
[2022-02-27 13:00] VITALS: BP 134/69
[2022-02-27 17:00] VITALS: BP 112/61
[2022-02-27 22:00] VITALS: BP 118/48
[2022-02-28] MEDS: CEFEPIME 2GM/50ML NS 50 ML IV SCH ×2 (02:35→14:54)
[2022-02-28 05:00] VITALS: BP 107/58
[2022-02-28] MEDS: InsuLIN REG 1unit/0.01ml Soln (100units/ml) SC SCH ×4 (05:23→23:47)
[2022-02-28] MEDS: ACCU-CHEK COMFORT CURVE STRIP VI SCH ×4 (05:23→23:47)
[2022-02-28 09:00] VITALS: BP 104/49
[2022-02-28] MEDS: PANTOPRAZOLE 40 MG/10 ML VIAL INJ IV SCH (09:34)
[2022-02-28] MEDS: SODIUM CHLOR 0.9% PF (SALINE LOCK) 10ML VIAL/SYR IV SCH ×2 (09:35→22:00)
[2022-02-28] MEDS: CIPROFLOXACIN 400MG/200ML 200 ML IV SCH ×2 (11:54→23:13)
[2022-02-28 13:00] VITALS: BP 105/58
[2022-02-28 17:00] VITALS: BP 116/60
[2022-02-28 22:00] VITALS: BP 105/55
[2022-03-01] MEDS: CEFEPIME 2GM/50ML NS 50 ML IV SCH ×2 (03:18→15:45)
[2022-03-01 05:00] VITALS: BP 110/79
[2022-03-01] MEDS: InsuLIN REG 1unit/0.01ml Soln (100units/ml) SC SCH ×3 (06:00→18:00)
[2022-03-01] MEDS: ACCU-CHEK COMFORT CURVE STRIP VI SCH ×3 (06:16→18:27)
[2022-03-01 09:00] VITALS: BP 112/51
[2022-03-01] MEDS: SODIUM CHLOR 0.9% PF (SALINE LOCK) 10ML VIAL/SYR IV SCH ×2 (09:12→22:13)
[2022-03-01] MEDS: PANTOPRAZOLE 40 MG/10 ML VIAL INJ IV SCH (09:12)
[2022-03-01] MEDS: CIPROFLOXACIN 400MG/200ML 200 ML IV SCH ×2 (12:04→23:29)
[2022-03-01 13:00] VITALS: BP 111/60
[2022-03-01 16:33] VITALS: BP 124/56
[2022-03-01 22:04] VITALS: BP 120/62
[2022-03-02] MEDS: ACCU-CHEK COMFORT CURVE STRIP VI SCH ×5 (00:16→23:04)
[2022-03-02] MEDS: CEFEPIME 2GM/50ML NS 50 ML IV SCH ×2 (03:15→15:30)
[2022-03-02 05:00] VITALS: BP 126/57
[2022-03-02] MEDS: InsuLIN REG 1unit/0.01ml Soln (100units/ml) SC SCH ×5 (05:47→23:05)
[2022-03-02 09:00] VITALS: BP 109/63
[2022-03-02] MEDS: PANTOPRAZOLE 40 MG/10 ML VIAL INJ IV SCH (10:26)
[2022-03-02] MEDS: CIPROFLOXACIN 400MG/200ML 200 ML IV SCH ×2 (10:27→22:49)
[2022-03-02] MEDS: SODIUM CHLOR 0.9% PF (SALINE LOCK) 10ML VIAL/SYR IV SCH ×2 (10:34→21:18)
[2022-03-02 13:00] VITALS: BP 111/50
[2022-03-02 17:00] VITALS: BP 125/61
[2022-03-02 21:49] VITALS: BP 125/62
[2022-03-03] MEDS: CEFEPIME 2GM/50ML NS 50 ML IV SCH ×2 (03:04→16:15)
[2022-03-03 05:00] VITALS: BP 115/60
[2022-03-03] MEDS: ACCU-CHEK COMFORT CURVE STRIP VI SCH ×4 (05:57→23:24)
[2022-03-03] MEDS: InsuLIN REG 1unit/0.01ml Soln (100units/ml) SC SCH ×4 (05:57→23:56)
[2022-03-03 09:00] VITALS: BP 111/63
[2022-03-03] MEDS: PANTOPRAZOLE 40 MG/10 ML VIAL INJ IV SCH (10:49)
[2022-03-03] MEDS: SODIUM CHLOR 0.9% PF (SALINE LOCK) 10ML VIAL/SYR IV SCH ×2 (10:49→22:06)
[2022-03-03] MEDS: CIPROFLOXACIN 400MG/200ML 200 ML IV SCH ×2 (10:52→22:56)
[2022-03-03 13:00] VITALS: BP 110/55
[2022-03-03 16:42] VITALS: BP 126/59
[2022-03-04] MEDS: CEFEPIME 2GM/50ML NS 50 ML IV SCH ×2 (03:50→15:00)
[2022-03-04 05:00] VITALS: BP 123/57
[2022-03-04] MEDS: InsuLIN REG 1unit/0.01ml Soln (100units/ml) SC SCH ×4 (05:40→23:45)
[2022-03-04] MEDS: ACCU-CHEK COMFORT CURVE STRIP VI SCH ×4 (05:41→23:45)
[2022-03-04 09:00] VITALS: BP 118/55
[2022-03-04] MEDS ORDERED: CIPR-173 PO (09:45)
[2022-03-04] MEDS: PANTOPRAZOLE 40 MG/10 ML VIAL INJ IV SCH (10:22)
[2022-03-04] MEDS: SODIUM CHLOR 0.9% PF (SALINE LOCK) 10ML VIAL/SYR IV SCH ×2 (10:27→22:04)
[2022-03-04] MEDS: CIPROFLOXACIN 400MG/200ML 200 ML IV SCH ×2 (11:32→23:45)
[2022-03-04 13:00] VITALS: BP 115/65
[2022-03-04 17:00] VITALS: BP 108/59
[2022-03-05] MEDS: CEFEPIME 2GM/50ML NS 50 ML IV SCH (02:49)
[2022-03-05 05:00] VITALS: BP 101/56
[2022-03-05] MEDS: ACCU-CHEK COMFORT CURVE STRIP VI SCH (05:55)
[2022-03-05] MEDS: InsuLIN REG 1unit/0.01ml Soln (100units/ml) SC SCH (05:56)
[2022-03-05 08:30] VITALS: BP 124/64
[2022-03-05] MEDS: SODIUM CHLOR 0.9% PF (SALINE LOCK) 10ML VIAL/SYR IV SCH (10:00)
[2022-03-05] MEDS: PANTOPRAZOLE 40 MG/10 ML VIAL INJ IV SCH (10:00)
[2022-03-05 10:42] VITALS: BP 150/70
[2022-03-05] MEDS: CIPROFLOXACIN 400MG/200ML 200 ML IV SCH (11:00)
== END 2022-03-05 12:36 | disposition home or self-care (01) | DRG 870 ==
LOC: ER 13:14 → OVERFLOW 22:13 → WEST WING 02-06 03:55 → ICU WEST 02-09 04:04 → TELE-DOU 02-20 00:17 → TELE-EAST 02-20 00:53
PROVIDERS: ADMIT Nurse Practitioner Family; ATTEND Family Medicine
PROC: 5A1955Z Respiratory Ventilation, Greater than 96 Consecutive Hours (ICD-10-PCS; principal; 2022-02-09)
PROC: 02HV33Z Insertion of Infusion Device into Superior Vena Cava, Percutaneous Approach (ICD-10-PCS; 2022-02-09)
PROC: 0BH17EZ Insertion of Endotracheal Airway into Trachea, Via Natural or Artificial Opening (ICD-10-PCS; 2022-02-09)
PROC: 5A09357 Assistance with Respiratory Ventilation, Less than 24 Consecutive Hours, Continuous Positive Airway Pressure (ICD-10-PCS; 2022-02-09)
DX: A41.9 Sepsis, unspecified organism (principal); G92.8 Other toxic encephalopathy; J69.0 Pneumonitis due to inhalation of food and vomit; J96.01 Acute respiratory failure with hypoxia; N17.0 Acute kidney failure with tubular necrosis; J15.5 Pneumonia due to Escherichia coli; R65.21 Severe sepsis with septic shock; K56.609 Unspecified intestinal obstruction, unspecified as to partial versus complete obstruction; J44.1 Chronic obstructive pulmonary disease with (acute) exacerbation; E44.0 Moderate protein-calorie malnutrition; G93.1 Anoxic brain damage, not elsewhere classified; J44.0 Chronic obstructive pulmonary disease with (acute) lower respiratory infection; J98.11 Atelectasis; Z16.12 Extended spectrum beta lactamase (ESBL) resistance; Z20.822 Contact with and (suspected) exposure to COVID-19; E11.22 Type 2 diabetes mellitus with diabetic chronic kidney disease; E11.65 Type 2 diabetes mellitus with hyperglycemia; N18.31 Chronic kidney disease, stage 3a; I12.9 Hypertensive chronic kidney disease with stage 1 through stage 4 chronic kidney disease, or unspecified chronic kidney disease; G40.909 Epilepsy, unspecified, not intractable, without status epilepticus; D64.9 Anemia, unspecified; E87.6 Hypokalemia; E88.09 Other disorders of plasma-protein metabolism, not elsewhere classified; F17.200 Nicotine dependence, unspecified, uncomplicated; E78.00 Pure hypercholesterolemia, unspecified; Z79.899 Other long term (current) drug therapy; Z79.82 Long term (current) use of aspirin; Z68.26 Body mass index [BMI] 26.0-26.9, adult; I69.320 Aphasia following cerebral infarction; Z79.84 Long term (current) use of oral hypoglycemic drugs
CPT/HCPCS: 36415; 36569; 36600; 70450; 71045; 71046; 71275; 74176; 76705; 80048; 80053; 80076; 80185; 81001; 82306; 82570; 82805; 82962; 83036; 83605; 83735; 83880; 83970; 84100; 84156; 84300; 84478; 84484; 85007; 85025; 85027; 85379; 85610; 85730; 86710; 87040; 87070; 87077; 87086; 87186; 87205; 87426; 87804; 92610; 93005; 93306; 93970; 93971; 94002; 94003; 94640; 94660; 95819; 96361; 96365; 97110; 97116; 97163; 97530; C9113; G0378; J0330; J0692; J0696; J1335; J1450; J1815; J2185; J2250; J2405; J2543; J2704; J3470; J3480; J3490; J7060

== ENCOUNTER → 2022-12-15 | Outpatient (CLI) | payer OTHER ==
[~2022-12-15] MED LIST changes: +CIPR-173 PO; +IBUP-1455 PO; -IBUP800T26 PO; -LEVO-28 PO; +LEVO500T91 PO; +METR-344 PO; -METR500T14 PO
[2022-12-15 09:43] LABS: Basophils # (auto) 0.1 10 ^3/uL (0-0.2); Basophils % (auto) 0.4 % (0.0-2.0); Eosinophils # (auto) 0.6 10 ^3/uL (0-0.8); Eosinophils % (auto) 4.4 % (0.0-7.0); Hematocrit 39.1 % (41.0-53.0); Hemoglobin 13.1 g/dL (13.5-17.5); Lymphocytes # (auto) 2.6 10 ^3/uL (0.4-5.4); Lymphocytes % (auto) 20.2 % (10.0-50.0); Mean Corpuscular Hemoglobin 29.6 pg (28.0-32.0); Mean Corpuscular Hgb Conc. 33.4 g/dL (32.0-36.0); Mean Corpuscular Volume 88.5 fL (80.0-100.0); Monocytes # (auto) 1.1 10 ^3/uL (0-1.3); Monocytes % (auto) 8.8 % (0.0-12.0); Neutrophils # (auto) 8.7 10 ^3/uL (1.6-8.6); Neutrophils % (auto) 66.2 % (37.0-80.0); Red Blood Cells 4.41 10^6/uL (4.5-5.90); Red Cell Distribution Width 13.6 % (11.8-14.3); White Blood Cell 13.1 10^3/uL (4.4-10.8)
[2022-12-15 10:20] LABS: Alanine Aminotransferase 24 U/L (7-40); Albumin 4.5 g/dL (3.2-4.8); Alkaline Phosphatase 140 U/L (46-116); Anion Gap 10 (5-15); Aspartate Aminotransferase 13 U/L (13-40); BUN/Creatinine Ratio 25.2 (10.0-20.0); Blood Urea Nitrogen 34 mg/dL (9-23); Calcium 9.9 mg/dL (8.5-10.1); Carbon Dioxide 26 mmol/L (20-30); Chloride 107 mmol/L (98-107); Cholesterol 151 mg/dL (< 200); Glucose 90 mg/dL (74-106); HDL Cholesterol 50 mg/dL (40-59); LDL Cholesterol 79 mg/dL (< 100); Potassium 4.1 mmol/L (3.5-5.1); Sodium 143 mmol/L (136-145); Triglycerides 118 mg/dL (< 150)
[2022-12-15 10:21] LABS: Bilirubin, Total 0.3 mg/dL (0.2-1.0); Total Protein 7.4 g/dL (5.7-8.2)
[2022-12-16 06:06] LABS: PSA Free 1.83 ng/mL
[2022-12-16 07:06] LABS: Prostate Specific Antigen 6.7 ng/mL (0.0-4.0)
== END | disposition home or self-care (01) ==
LOC: LAB 09:15
PROVIDERS: ATTEND Nurse Practitioner Family
DX: Z00.01 Encounter for general adult medical examination with abnormal findings (principal); I10 Essential (primary) hypertension; E78.49 Other hyperlipidemia; R35.1 Nocturia
CPT/HCPCS: 36415; 80053; 80061; 84153; 84154; 85025

== ENCOUNTER → 2023-07-07 | Outpatient (CLI) | payer OTHER ==
[~2023-07-07] VITALS: Ht 182.9 cm; Wt 59.0 kg
[2023-07-07] MEDS: REGADENOSON 0.4 MG/5 ML SYRG IV ONE ×2 (09:50→10:20)
== END | disposition home or self-care (01) ==
LOC: XYW 07:49
PROVIDERS: ATTEND Student in an Organized Health Care Education/Training Program
DX: Z01.810 Encounter for preprocedural cardiovascular examination (principal); R06.02 Shortness of breath
CPT/HCPCS: 78452; 93017; A9500; J2785

== ENCOUNTER → 2023-07-17 | Outpatient (CLI) | payer OTHER | END | disposition home or self-care (01) | LOC: XYW 10:26 | PROVIDERS: ATTEND Student in an Organized Health Care Education/Training Program | DX: Z01.810 Encounter for preprocedural cardiovascular examination (principal); I51.89 Other ill-defined heart diseases; R06.02 Shortness of breath | CPT/HCPCS: 93306 ==

== ENCOUNTER 2023-09-05 06:45 | Day surgery (SDC) | payer OTHER ==
[2023-09-01 15:29] LABS: Basophils # (auto) 0.1 10 ^3/uL (0-0.2); Basophils % (auto) 0.7 % (0.0-2.0); Eosinophils # (auto) 0.6 10 ^3/uL (0-0.8); Eosinophils % (auto) 5.4 % (0.0-7.0); Hematocrit 40.1 % (41.0-53.0); Hemoglobin 13.3 g/dL (13.5-17.5); Lymphocytes # (auto) 2.8 10 ^3/uL (0.4-5.4); Lymphocytes % (auto) 25.8 % (10.0-50.0); Mean Corpuscular Hemoglobin 29.9 pg (28.0-32.0); Mean Corpuscular Hgb Conc. 33.2 g/dL (32.0-36.0); Mean Corpuscular Volume 90.3 fL (80.0-100.0); Monocytes % (auto) 8.8 % (0.0-12.0); Neutrophils # (auto) 6.5 10 ^3/uL (1.6-8.6); Neutrophils % (auto) 59.3 % (37.0-80.0); Nucleated Red Blood Cells % 0.1 %; Red Blood Cells 4.44 10^6/uL (4.5-5.90); Red Cell Distribution Width 13.4 % (11.8-14.3)
[2023-09-01 15:51] LABS: INR 0.98 (0.9-1.15); Partial Thromboplastin Time 29.1 SEC (24.5-34.5); Prothrombin Time 10.4 sec (9.3-11.8)
[2023-09-01 15:56] LABS: Alanine Aminotransferase 17 U/L (7-40); Albumin 4.7 g/dL (3.2-4.8); Alkaline Phosphatase 118 U/L (46-116); Anion Gap 10 (5-15); Aspartate Aminotransferase 16 U/L (13-40); BUN/Creatinine Ratio 21.4 (10.0-20.0); Blood Urea Nitrogen 28 mg/dL (9-23); Calcium 10.3 mg/dL (8.5-10.1); Carbon Dioxide 25 mmol/L (20-30); Chloride 109 mmol/L (98-107); Glucose 94 mg/dL (74-106); Potassium 4.9 mmol/L (3.5-5.1); Sodium 144 mmol/L (136-145)
[2023-09-01 15:57] LABS: Bilirubin, Total 0.2 mg/dL (0.2-1.0); Total Protein 7.5 g/dL (5.7-8.2)
[2023-09-05] VITALS (11 sets, daily range): BP systolic 120–163; BP diastolic 64–90; PULSE 85–128; RESP 21–33; TEMP 98.9; O2SAT 89–100
[~2023-09-05] VITALS: Ht 182.9 cm; Wt 54.4 kg
[~2023-09-05 06:45] MED LIST changes: +ALBUAER3 IN; +CALC1TAB92 PO; -CIPR-173 PO; +FLUT1AER3 IN; -HYDR-4069 PO; +HYDR-4902 PO; -LEVO500T91 PO; -METR-344 PO; -MIRT1TAB PO; +POM; +POM PO
[2023-09-05] MEDS ORDERED: ANGIOMAX 250 MG VIAL IV ONE ×2 (08:42→09:15)
[2023-09-05] MEDS ORDERED: HEPARIN SODIUM (PORCINE) 5000 UNITS/ML 1ML VIAL ONE (08:42)
[2023-09-05] MEDS ORDERED: fentaNYL CITRATE 100 MCG/2 ML VL ONE (08:43)
[2023-09-05] MEDS ORDERED: MIDAZOLAM HCL 2MG/2ML 2ml VIAL (1mg/ml) ONE (08:43)
[2023-09-05] MEDS ORDERED: VERAPAMIL 2.5MG/ML INJ 2ML VIAL IV ONE (08:43)
[2023-09-05] MEDS ORDERED: SODIUM CHL 0.9% 0 ML ONE (08:43)
[2023-09-05] MEDS ORDERED: IODIXANOL 320MG/ML 100ML BTL IV ONE ×2 (08:43→09:11)
[2023-09-05] MEDS ORDERED: LIDOCAINE 2%HCL (LOCAL ANESTH.) INJ 20ML MDV ONE (08:43)
[2023-09-05] MEDS ORDERED: SODIUM CHL 0.9% 50 ML ONE (09:15)
[2023-09-05] MEDS ORDERED: ASPirin 81 mg TAB ONE (09:26)
[2023-09-05] MEDS ORDERED: CLOPIDOGREL BISULFATE 75 MG TAB ONE (09:26)
[2023-09-05] MEDS ORDERED: MIRT1TAB PO (09:59)
[2023-09-05] MEDS ORDERED: TURM500C3 PO (10:07)
[2023-09-05] MEDS ORDERED: ALBU1NEB5 NEB (10:07)
[2023-09-05] MEDS ORDERED: CLOP75TA28 PO (10:36)
[2023-09-05] MEDS ORDERED: ALBUTEROL SULF HFA 90MCG INH 200DOSE IN STA (11:30)
[2023-09-05] MEDS: ALBUTEROL SULF 2.5 MG/0.5ML(0.5%) NEB SOLN ONE (11:33)
[2023-09-05] MEDS: ALBUTEROL SULFATE 90 MCG MDI IN ONE (11:33)
[2023-09-05] MEDS: ALBUTEROL SULF 2.5 MG/0.5ML(0.5%) NEB SOLN NEB STA (11:35)
== END 2023-09-05 12:10 | disposition home or self-care (01) ==
LOC: CATH 06:45
PROVIDERS: ATTEND Student in an Organized Health Care Education/Training Program
DX: R06.02 Shortness of breath (principal); R94.39 Abnormal result of other cardiovascular function study; I25.10 Atherosclerotic heart disease of native coronary artery without angina pectoris; I10 Essential (primary) hypertension; E78.5 Hyperlipidemia, unspecified; J44.9 Chronic obstructive pulmonary disease, unspecified; F32.A Depression, unspecified; Z87.891 Personal history of nicotine dependence; Z79.82 Long term (current) use of aspirin; Z79.01 Long term (current) use of anticoagulants; Z79.899 Other long term (current) drug therapy; Z98.890 Other specified postprocedural states
CPT/HCPCS: 36415; 80053; 85025; 85610; 85730; 93458; 93571; 94640; C1725; C1769; C1874; C1894; C9600; J0583; J1644; J2250; J3010; J7040; Q9967; 99152; 99153

== ENCOUNTER 2024-01-17 10:42 | Emergency (ER) | payer OTHER ==
[~2024-01-17] VITALS: Ht 182.9 cm; Wt 56.0 kg
[~2024-01-17 10:42] MED LIST changes: +ALBU1NEB5 NEB; +CLOP75TA28 PO; +MIRT1TAB PO; -MIRT1TAB38 PO; -POM; -POM PO; +TURM500C3 PO
[2024-01-17 11:44] LABS: Basophils # (auto) 0 10 ^3/uL (0-0.2); Basophils % (auto) 0.4 % (0.0-2.0); Eosinophils # (auto) 0.4 10 ^3/uL (0-0.8); Eosinophils % (auto) 3.5 % (0.0-7.0); Hematocrit 42.8 % (41.0-53.0); Lymphocytes % (auto) 25.1 % (10.0-50.0); Mean Corpuscular Hemoglobin 29.1 pg (28.0-32.0); Mean Corpuscular Hgb Conc. 32.8 g/dL (32.0-36.0); Mean Corpuscular Volume 88.6 fL (80.0-100.0); Monocytes # (auto) 1.1 10 ^3/uL (0-1.3); Monocytes % (auto) 9.4 % (0.0-12.0); Neutrophils # (auto) 7.5 10 ^3/uL (1.6-8.6); Neutrophils % (auto) 61.6 % (37.0-80.0); Platelet Count (auto) 343 10^3/uL (140-450); Red Blood Cells 4.83 10^6/uL (4.5-5.90); White Blood Cell 12.1 10^3/uL (4.4-10.8)
--- NOTE | 2024-01-17 11:54 | DVH ---
CLINICAL INDICATION: r/o fracture TECHNIQUE: XY R FEMUR XRAY, 4 views Comparison: None FINDINGS/IMPRESSION: There is no evidence of acute fracture or dislocation. The visualized joint space is well maintained. The alignment is anatomical. There is no radiopaque foreign body. Extensive atherosclerosis.
[2024-01-17 12:03] LABS: INR 1.01 (0.9-1.15); Prothrombin Time 10.7 sec (9.3-11.8)
[2024-01-17 12:04] LABS: Chloride 106 mmol/L (98-107); Potassium 4.3 mmol/L (3.5-5.1); Sodium 143 mmol/L (136-145)
[2024-01-17 12:05] LABS: Anion Gap 11 (5-15); Carbon Dioxide 26 mmol/L (20-31)
[2024-01-17 12:06] LABS: Calcium 10.5 mg/dL (8.7-10.4)
[2024-01-17 12:11] LABS: BUN/Creatinine Ratio 18.1 (10.0-20.0); Blood Urea Nitrogen 25 mg/dL (9-23); Glucose 62 mg/dL (74-106)
--- NOTE | 2024-01-17 12:28 | ED.PDOC ---
Musculoskeletal HPI Comments 78 year old male presents for a contusion to the right inner thigh. No other concerns Denies CP SOB Chief Complaint: Lower Extremity Time Seen by MD: 11:09 Primary Care Provider: VERN Reviewed Notes: Nurses Notes, Medications, Allergies Allergies: Coded Allergies: NO KNOWN ALLERGIES (Unverified , 08/28/16) Home Meds Reported Medications Clopidogrel Bisulfate (Plavix) 75 Mg Tab, 1 TAB PO QAM for CORONARY ARTERY DISEASE Start this NEW medication tomorrow morning 09-06-23 09/05/23 Curcuma Longa (Turmeric) Extra (TURMERIC) 500 Mg Cap, 1 CAP PO DAILY for SUPPLEMENT 09/05/23 Albuterol Sulfate (Albuterol Sulfate (5 mg/ml) 0.5%) 1 Neb Neb, 1 UNIT NEB QIDPRN PRN for SHORTNESS OF BREATH 09/05/23 Mirtazapine (Mirtazapine Oral Disintegrating Tablet) 7.5 Mg Tab, 1 TAB PO DAILY for DEPRESSION 09/05/23 Calcium Carbonate (Calcium) 600 Mg Tab, 1 TAB PO DAILY for SUPPLEMENT 09/01/23 Hydrocodone-Acetaminophen (Hydrocodone Bitartrate/AC 5-325 mg) 1 Tab Tab, 1 TAB PO Q12HP PRN for PAIN SCALE 7 THRU 10 09/01/23 Rosuvastatin Calcium (Crestor) 10 Mg Tab, 1 TAB PO DAILY for HIGH CHOLESTEROL 09/01/23 Pziqbvcqryl-Eqsuxbxmjmgl-Alufe (Trelegy Ellipta 100-62.5-25 Mcg/INH) 1 Aer Aer, 1 PUFF IN DAILY for COPD 09/01/23 Albuterol Sulfate (VENTOLIN MDI) 90 Mcg Ih, 2 PUFF IN QID PRN for SHORTNESS OF BREATH 09/01/23 Aspirin (Aspir-81) 81 Mg Tab, 1 TAB PO DAILY for HEART ATTACK PREVENTION 08/28/16 Duloxetine HCl (Duloxetine HCl) 60 Mg Cap, 1 CAP PO DAILY for DEPRESSION 08/28/16 Phenytoin Sodium (Dilantin) 100 Mg Cap, 1 CAP PO BID for SEIZURES, CAP 08/28/16 Ibuprofen Micronized (Ibuprofen) 800 Mg Tab, 1 TAB PO Q8HPRN PRN for PAIN SCALE 1 THRU 6 08/28/16 Information Source: Patient Mode of Arrival: Ambulatory Past Medical History PAST MEDICAL HISTORY: COPD, CVA, DM, High Lipids, HTN, Seizures Surgical History: Denies all surgeries Family History Family History: Reviewed,noncontributory to illness Social History Smoker: Non-Smoker Alcohol: Occasionally Drugs: Denies Drug Use Lives In: Home All Other Systems: Reviewed and Negative (Per HPI) Physical Exam General Appearance: No Apparent Distress, Normal HEENT: Normal ENT Inspection, Pharynx Normal, TMs Normal Neck: Full Range of Motion, Non-Tender, Normal, Normal Inspection Respiratory: Chest Non-Tender, Lungs Clear, No Accessory Muscle Use, No Respiratory Distress, Normal Breath Sounds Cardiovascular: No Edema, No JVD, No Murmur, No Gallop, Normal Peripheral Pulses, Regular Rate/Rhythm Breast Exam: Deferred Gastrointestinal: No Organomegaly, Non Tender, No Pulsatile Mass, Normal Bowel Sounds, Soft Genitalia: Deferred Pelvic: Deferred Rectal: Deferred Extremities: No calf tenderness, Normal capillary refill, Normal inspection, Normal range of motion, Non-tender, No pedal edema Musculoskeletal : Apperance: Normal Neurologic: Alert, 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 Was a procedure done?: No Images 1 - contussion Differential Diagnosis EXT Differential Diagnosis: Sprain X-Ray, Labs, Meds, VS Vital Signs Date Time Temp Pulse Resp B/P (MAP) Pulse Ox O2 Delivery O2 Flow Rate FiO2 01/17/24 12:30 98.3 88 20 99/76 (84) 94 98.3 01/17/24 11:00 98.3 88 20 99/76 (84) 94 Lab Test 01/17/24 11:30 Range/Units White Blood Count 12.1 H 4.4-10.8 10^3/uL Red Blood Count 4.83 4.5-5.90 10^6/uL Hemoglobin 14.0 13.5-17.5 g/dL Hematocrit 42.8 41.0-53.0 % Mean Corpuscular Volume 88.6 80.0-100.0 fL Mean Corpuscular Hemoglobin 29.1 28.0-32.0 pg Mean Corpuscular Hemoglobin Concent 32.8 32.0-36.0 g/dL Red Cell Distribution Width 14.0 11.8-14.3 % Platelet Count 343 140-450 10^3/uL Mean Platelet Volume 8.9 6.9-10.8 fL Neutrophils (%) (Auto) 61.6 37.0-80.0 % Lymphocytes (%) (Auto) 25.1 10.0-50.0 % Monocytes (%) (Auto) 9.4 0.0-12.0 % Eosinophils (%) (Auto) 3.5 0.0-7.0 % Basophils (%) (Auto) 0.4 0.0-2.0 % Neutrophils # (Auto) 7.5 1.6-8.6 10 ^3/uL Lymphocytes # (Auto) 3.0 0.4-5.4 10 ^3/uL Monocytes # (Auto) 1.1 0-1.3 10 ^3/uL Eosinophils # (Auto) 0.4 0-0.8 10 ^3/uL Basophils # (Auto) 0 0-0.2 10 ^3/uL Nucleated Red Blood Cells 0.0 % Prothrombin Time 10.7 9.3-11.8 sec Prothrombin Time INR 1.01 0.9-1.15 Sodium Level 143 136-145 mmol/L Potassium Level 4.3 3.5-5.1 mmol/L Chloride Level 106 98-107 mmol/L Carbon Dioxide Level 26 20-31 mmol/L Anion Gap 11 5-15 Blood Urea Nitrogen 25 H 9-23 mg/dL Creatinine 1.38 H 0.700-1.30 mg/dL Glomerular Filtration Rate Calc 53 >90 mL/min BUN/Creatinine Ratio 18.1 10.0-20.0 Serum Glucose 62 L 74-106 mg/dL Calcium Level 10.5 H 8.7-10.4 mg/dL X-Ray, Labs, Meds, VS Comment On reevaluation, patient had symptomatic improvement. Patient is stable for discharge at this time. External notes reviewed. Test results and diagnostic imaging interpreted. All diagnostic findings, discharge care, education and instructions provided Follow-up with PCP in 2 to 3 days Patient verbalized understanding and agreed to treatment plan Vital signs stable, afebrile, no acute distress noted Patient ambulatory with strong steady gait Advised to return precautions for any new or worsening symptoms, return to ER immediately for re-evaluation Patient is aware that the purpose of this visit was for an acute medical emergency requiring emergent stabilization. Chronic conditions, including malignancies have not been ruled out. Patient is instructed to follow up with PCP as directed and discharge instructions for continued care and workup. If unable to arrange follow-up, patient is to return to the emergency department for reassessment. Patient (parent or legal guardian if applicable) was given verbal and written discharge instructions and acknowledges understanding. Time of 1ST Reevaluation: 12:15 Reevaluation 1ST: Improved Patient Education/Counseling: Diagnosis, Treatment Family Education/Counseling: Diagnosis, Treatment Departure 1 Departure Time of Disposition: 12:27 Impression: Primary Impression: Contusion Qualified Codes: S70.11XA - Contusion of right thigh, initial encounter Disposition: HOME / SELF CARE / HOMELESS Condition: Stable Discharged With: Self Critical Care Note Critical Care Time?: No Stability Stability form required: No Heart Score Heart Score: Heart Score Response (Comments) Value History N/A 0 EKG N/A 0 Age N/A 0 Risk Factors N/A 0 Troponin N/A 0 Total 0 ISAIAH SALAS NP Jan 17, 2024 12:28
[2024-01-17 12:30] VITALS: BP 99/76; PULSE 88; RESP 20; TEMP 98.3; O2SAT 94
== END 2024-01-17 12:45 | disposition home or self-care (01) ==
LOC: ER 10:42
DX: S70.11XA Contusion of right thigh, initial encounter (principal); E11.9 Type 2 diabetes mellitus without complications; E78.5 Hyperlipidemia, unspecified; I10 Essential (primary) hypertension; J44.9 Chronic obstructive pulmonary disease, unspecified; Z79.899 Other long term (current) drug therapy; Z79.84 Long term (current) use of oral hypoglycemic drugs; Z86.73 Personal history of transient ischemic attack (TIA), and cerebral infarction without residual deficits; X58.XXXA Exposure to other specified factors, initial encounter; Y93.89 Activity, other specified; Y92.89 Other specified places as the place of occurrence of the external cause; Y99.8 Other external cause status
CPT/HCPCS: 36415; 80048; 85025; 85610

== ENCOUNTER → 2024-06-04 | Outpatient (CLI) | payer OTHER ==
[~2024-06-04] MED LIST changes: -ALBU1NEB5 NEB; +CALC-605 PO; -CALC1TAB92 PO; -IBUP-1455 PO; +MULT-1180 PO
== END | disposition home or self-care (01) ==
LOC: LAB 09:47
PROVIDERS: ATTEND Nurse Practitioner Family
DX: E03.9 Hypothyroidism, unspecified (principal)
CPT/HCPCS: 36415; 84443

== ENCOUNTER 2024-06-06 06:15 | Day surgery (SDC) | payer OTHER ==
[2024-05-10 13:21] LABS: Basophils # (auto) 0.1 10 ^3/uL (0-0.2); Basophils % (auto) 0.9 % (0.0-2.0); Eosinophils # (auto) 0.3 10 ^3/uL (0-0.8); Eosinophils % (auto) 3.2 % (0.0-7.0); Hemoglobin 13.5 g/dL (13.5-17.5); Lymphocytes # (auto) 2.4 10 ^3/uL (0.4-5.4); Lymphocytes % (auto) 21.9 % (10.0-50.0); Mean Corpuscular Hemoglobin 29.7 pg (28.0-32.0); Monocytes # (auto) 0.7 10 ^3/uL (0-1.3); Monocytes % (auto) 6.1 % (0.0-12.0); Neutrophils # (auto) 7.3 10 ^3/uL (1.6-8.6); Neutrophils % (auto) 67.9 % (37.0-80.0); Nucleated Red Blood Cells % 0.1 %; Platelet Count (auto) 384 10^3/uL (140-450); Red Blood Cells 4.55 10^6/uL (4.5-5.90); White Blood Cell 10.8 10^3/uL (4.4-10.8)
[2024-05-10 13:34] LABS: Urine Bacteria FEW /hpf (None Seen); Urine Blood Negative /uL (Negative); Urine Clarity Turbid (Clear); Urine Color Yellow (Yellow); Urine Mucus FEW (None Seen); Urine Protein, UAD Negative (Negative); Urine Specific Gravity 1.018 (1.001-1.035); Urine Squamous Epithelial Cell FEW /hpf (<5); Urine Urobilinogen Normal (Negative); Urine WBC 169 /HPF (0-3)
[2024-05-10 13:53] LABS: Prothrombin Time 10.6 sec (9.3-11.8)
[2024-05-10 14:18] LABS: Alanine Aminotransferase 18 U/L (7-40); Albumin 4.6 g/dL (3.2-4.8); Anion Gap 9 (5-15); Aspartate Aminotransferase 19 U/L (13-40); BUN/Creatinine Ratio 24.4 (10.0-20.0); Carbon Dioxide 27 mmol/L (20-31); Chloride 106 mmol/L (98-107); Glucose 93 mg/dL (74-106); Potassium 4.9 mmol/L (3.5-5.1); Sodium 142 mmol/L (136-145); Total Protein 7.5 g/dL (5.7-8.2)
[2024-05-10 14:22] LABS: Alkaline Phosphatase 136 U/L (46-116); Bilirubin, Total 0.2 mg/dL (0.2-1.0); Blood Urea Nitrogen 31 mg/dL (9-23); Calcium 10.4 mg/dL (8.7-10.4)
[2024-06-04 10:06] LABS: Urine Bacteria None Seen /hpf (None Seen)
[2024-06-04 10:19] LABS: Basophils # (auto) 0.1 10 ^3/uL (0-0.2); Basophils % (auto) 0.7 % (0.0-2.0); Eosinophils # (auto) 0.6 10 ^3/uL (0-0.8); Eosinophils % (auto) 6.3 % (0.0-7.0); Hematocrit 42.9 % (41.0-53.0); Hemoglobin 14.1 g/dL (13.5-17.5); Lymphocytes # (auto) 2.3 10 ^3/uL (0.4-5.4); Mean Corpuscular Hemoglobin 29.8 pg (28.0-32.0); Mean Corpuscular Hgb Conc. 32.8 g/dL (32.0-36.0); Mean Corpuscular Volume 90.6 fL (80.0-100.0); Monocytes # (auto) 0.7 10 ^3/uL (0-1.3); Monocytes % (auto) 8.4 % (0.0-12.0); Neutrophils # (auto) 5.2 10 ^3/uL (1.6-8.6); Neutrophils % (auto) 58.6 % (37.0-80.0); Platelet Count (auto) 204 10^3/uL (140-450); Red Blood Cells 4.73 10^6/uL (4.5-5.90); Red Cell Distribution Width 13.4 % (11.8-14.3); White Blood Cell 8.9 10^3/uL (4.4-10.8)
[2024-06-04 10:24] LABS: Urine Blood Negative /uL (Negative); Urine Clarity Clear (Clear); Urine Color Yellow (Yellow); Urine Protein, UAD Negative (Negative); Urine Specific Gravity 1.021 (1.001-1.035); Urine Squamous Epithelial Cell FEW /hpf (<5); Urine Urobilinogen Normal (Negative); Urine WBC < 1 /HPF (0-3); Urine pH 5.5 (5.0-9.0)
[2024-06-04 10:35] LABS: INR 0.98 (0.9-1.15); Partial Thromboplastin Time 28.5 SEC (24.5-34.5); Prothrombin Time 10.4 sec (9.3-11.8)
[2024-06-04 10:57] LABS: Alanine Aminotransferase 23 U/L (7-40); Albumin 4.7 g/dL (3.2-4.8); Anion Gap 7 (5-15); Aspartate Aminotransferase 20 U/L (13-40); BUN/Creatinine Ratio 23.8 (10.0-20.0); Bilirubin, Total 0.4 mg/dL (0.2-1.0); Carbon Dioxide 28 mmol/L (20-31); Chloride 107 mmol/L (98-107); Glucose 96 mg/dL (74-106); Potassium 4.5 mmol/L (3.5-5.1); Sodium 142 mmol/L (136-145); Total Protein 7.5 g/dL (5.7-8.2)
[2024-06-04 10:58] LABS: Alkaline Phosphatase 135 U/L (46-116); Blood Urea Nitrogen 31 mg/dL (9-23); Calcium 10.6 mg/dL (8.7-10.4)
[~2024-06-06] VITALS: Ht 182.9 cm; Wt 56.2 kg
[2024-06-06] MEDS ORDERED: MIDAZOLAM HCL 2MG/2ML 2ml VIAL (1mg/ml) ONE (07:02)
[2024-06-06] MEDS ORDERED: KETAMINE 50mg/ML 10ml Vial 10 ML ONE (07:03)
[2024-06-06] MEDS ORDERED: PROPOFOL 10 MG/ML 20 ML IV ONE (07:03)
[2024-06-06] MEDS ORDERED: GLYCOPYRROLATE 0.2 MG/ML 1ML VIAL ONE (07:03)
[2024-06-06] MEDS ORDERED: ONDANSETRON HCL 4 MG/2 ML VIAL ONE (07:03)
[2024-06-06] MEDS ORDERED: CIPROFLOXACIN 400MG/200ML 200 ML IV ONE (07:12)
[2024-06-06 07:39] VITALS: RESP 21; TEMP 99.2; O2SAT 95
--- NOTE | 2024-06-06 07:41 | DVHNC2 ---
Procedure - OPERATIVE REPORT Pre-op. Diagnosis: Elevated PSA 14.5 (4K Score 50%) Post-op. Diagnosis: Same as pre-op diagnosis Operation: Prostate Biopsyl, saturation extended pattern - CPT 89370 Transrectal ultrasound - CPT 97111 Anesthesia: MAC Dr. Mahmood Indications: Patient has a history of rising PSA. Patient had been prepped with fleet enema, was started on antibiotics and had abstained from blood thinners for at least 7 days. Complication including but not limited to infection, bleeding into urethra, bladder, rectum, ejaculate, as well as urinary retention were discussed, informed consent was obtained. Details of Procedure: Patient was placed in the position. A trans-rectal ultrasound was inserted, prostate was measured at 45 grams. Bilateral periprostatic nerve block is administered. Next, extended twelve core biopsies were obtained thru a transrectall technique and under real-time ultrasound. Patient tolerated the procedure well and was transferred to the recovery in satisfactory condition. Specimens: 12 Cores Complications: None ANNETTA POTTER MD Jun 06, 2024 07:41
--- NOTE | 2024-06-06 07:42 | DVHDS2 ---
New Physician D'charge PN Admitting Diagnosis Admitting Diagnosis Elevated PSA Discharge Diagnosis Same Operations or Procedures Transrectal ultrasound-guided prostate biopsy Reason(s) For Hospitalization Surgery Treatment Plan Discharge Condition of Discharge Good Disposition Home Discharge Instructions Diet: Regular Activity: Light activity Activity comment: As tolerated Medications: Resume on postop day 1. Follow Up Care Follow Up/Referral: Two weeks follow up for pathology results Discharge Statement: "Patient was advised to return to the ER or call 911 if any headaches, dizziness, shortness of breath, chest pain, abdominal pain, bleeding, fevers, or worsening of medical condition. Patient was counseled about treatment plan, medications, possible side effects, patientverbalized understanding. All questions were answered to the best of my ability. This discharge took greater then 30 minutes in planning, reviewing documentation, counseling the patient, and discussing with other team members." ANNETTA POTTER MD Jun 06, 2024 07:42
[2024-06-06 08:10] VITALS: O2SAT 94
[2024-06-06 08:20] VITALS: BP 121/67; PULSE 92; RESP 21
== END 2024-06-06 08:35 | disposition home or self-care (01) ==
LOC: SUR 06:15
PROVIDERS: ATTEND Urology
DX: R97.20 Elevated prostate specific antigen [PSA] (principal); N42.32 Atypical small acinar proliferation of prostate; N40.0 Benign prostatic hyperplasia without lower urinary tract symptoms; I10 Essential (primary) hypertension; I25.10 Atherosclerotic heart disease of native coronary artery without angina pectoris; J44.9 Chronic obstructive pulmonary disease, unspecified; E78.00 Pure hypercholesterolemia, unspecified; G40.909 Epilepsy, unspecified, not intractable, without status epilepticus; F41.9 Anxiety disorder, unspecified; Z98.890 Other specified postprocedural states
CPT/HCPCS: 36415; 55700; 76872; 80053; 81001; 85025; 85610; 85730; 87086; 87088; 87186; 88305; 88342; J0744; J2250; J2405; J2704